=== PATIENT | female | born 1950 | race Caucasian/White ===

== ENCOUNTER → 2016-03-18 | Outpatient (REF) | payer BC, OTHER | LOC: M LAB REF 17:20 | PROVIDERS: ATTEND Internal Medicine | DX: Z20.828 Contact with and (suspected) exposure to other viral communicable diseases (principal) ==

== ENCOUNTER 2016-06-03 17:21 | Emergency (ER) | payer OTHER, BC ==
[~2016-06-03] VITALS: Ht 165.1 cm; Wt 83.9 kg
[2016-06-03] MEDS ORDERED: ACETAMINOPHEN 325 MG/10.15 ML UDC PO ONE (18:15)
[2016-06-03] MEDS ORDERED: VITA250L PO (18:18)
[2016-06-03] MEDS ORDERED: LIPI20TA PO (18:18)
[2016-06-03] MEDS ORDERED: ASPI81TA85 PO (18:18)
[2016-06-03] MEDS ORDERED: MULT1CHW39 PO (18:18)
[2016-06-03] MEDS ORDERED: CHLO25TA GT (18:18)
[2016-06-03] MEDS ORDERED: MEGE40TA18 PO (18:18)
[2016-06-03] MEDS ORDERED: CALC1TAB72 PO (18:18)
[2016-06-03] MEDS ORDERED: ANAS1TAB PO (18:18)
[2016-06-03] MEDS ORDERED: LISI-538 PO (18:18)
[2016-06-03] MEDS ORDERED: VITA200038 PO (18:18)
[2016-06-03] MEDS ORDERED: FOSA70TA PO (18:18)
[2016-06-03] MEDS ORDERED: PANT40TA2 PO (18:18)
--- NOTE | 2016-06-03 19:10 | REP ---
Bilateral knee series: Eight views: History: Trauma. Comparison left knee radiographs are from May 2010. Findings: There is marked diffuse osteopenia. Severe three compartment left and moderate right knee osteoarthritis is seen. The left knee osteoarthritic changes are more pronounced than on the 2011 prior study. There is no evidence of left or right knee fracture. Lateral view shows no evidence of joint effusion on either side. Impression: Three compartment osteoarthritis. Diffuse osteopenia. No fracture visible. Signed by Jason Neal MD 06/03/2016 07:56 P
[2016-06-03 19:22] LABS: BASO % 0.4 % (0.0-1.0); EOS # 0.2 K/mm3 (0.0-0.50); EOS % 1.4 % (0.0-3.0); LARGE UNSTAINED CELL # 0.2 K/mm3 (0.0-0.4); LARGE UNSTAINED CELL % 1.8 % (0.0-4.0); LYMPH # 2.3 K/mm3 (1.5-4.5); LYMPH % 20.9 % (24.0-44.0); MEAN CORPUSCULAR HEMOGLOBIN 29.9 pg (27.0-33.0); MEAN CORPUSCULAR HGB CONC 32.6 g/dl (32.0-36.5); MEAN CORPUSCULAR VOLUME 91.7 fl (80.0-96.0); MONO # 0.6 K/mm3 (0.0-0.8); MONO % 5.7 % (0.0-5.0); NEUTROPHILS # 7.6 K/mm3 (1.8-7.7); NEUTROPHILS % 69.8 % (36.0-66.0); PLATELET COUNT, AUTOMATED 244 k/mm3 (150-450); RED CELL DISTRIBUTION WIDTH 12.8 % (11.5-14.5); WHITE BLOOD COUNT 10.9 K/mm3 (4.0-10.0)
--- NOTE | 2016-06-03 19:37 | REP ---
Head CT without contrast: History: Trauma. CT findings: Digital lateral groundskeeping yardman radiograph is unremarkable. There is hyperostosis frontalis interna noted incidentally. This is of no clinical significance. The bony calvarium is otherwise unremarkable. Visualized paranasal sinuses are clear. There is some vascular calcification in the distal carotid arteries bilaterally. Lateral, third, fourth ventricles are normal in size and position. Ambriz-white differentiation pattern is intact. There is no evidence of infarct, hemorrhage, extra-axial fluid collection, or midline shift. There is some right frontal scalp swelling. No skull fracture. Impression: No evidence of skull fracture or intracranial injury. Right frontal scalp swelling. Some vascular calcification and minimal diffuse atrophy. Signed by Jason Neal MD 06/03/2016 07:58 P
[2016-06-03 19:45] LABS: ALBUMIN 3.5 GM/DL (3.2-5.2); ALBUMIN/GLOBULIN RATIO 1.13 (1.00-1.93); ALKALINE PHOSPHATASE 101 U/L (45-117); ALT/SGPT 20 U/L (12-78); ANION GAP 8 MEQ/L (8-16); AST/SGOT 14 U/L (15-37); BILIRUBIN,DIRECT 0.2 MG/DL (0.0-0.2); BILIRUBIN,TOTAL 0.5 MG/DL (0.2-1.0); BLOOD UREA NITROGEN 15 MG/DL (7-18); CALCIUM LEVEL 8.4 MG/DL (8.8-10.2); CARBON DIOXIDE LEVEL 24 MEQ/L (21-32); CHLORIDE LEVEL 111 MEQ/L (98-107); CREATININE FOR GFR 1.02 MG/DL (0.55-1.02); GLOMERULAR FILTRATION RATE 58.1 (>45); GLUCOSE, FASTING 129 MG/DL (80-110); POTASSIUM SERUM 4.1 MEQ/L (3.5-5.1); SODIUM LEVEL 143 MEQ/L (136-145); TOTAL PROTEIN 6.6 GM/DL (6.4-8.2)
[2016-06-03 19:46] LABS: INR 0.96
--- NOTE | 2016-06-03 19:49 | REP ---
CT study of the cervical spine without contrast: History: Trauma. Technique: Helical scanning is acquired and overlapping 2 mm high resolution axial images were generated and reviewed at bone and soft tissue window settings. Coronal and sagittal multiplanar re-formations images are generated. CT findings: There is no evidence of cervical spine element fracture. No skull base fracture is seen. Cervical vertebral body heights are preserved. Alignment is normal. Facet joints are normally aligned bilaterally at each cervical level on multiplanar re-formations images. There is no evidence of intraspinal or paraspinal hematoma. No extra vertebral abnormality is seen. There are moderate degenerative spondylosis changes with degenerative disc disease most pronounced at the C5-6 and C6-7. Facet osteoarthritis is seen at C6-7 and C7-T1, left more so than right. There is a levoconvex curvature in the cervical spine visible on coronal reformatted images. Impression: Fairly advanced degenerative spondylosis changes. Levoconvex curvature. Otherwise negative CT study of the cervical spine without contrast. No fracture seen. Signed by Jason Neal MD 06/03/2016 07:58 P
[2016-06-03] MEDS ORDERED: CIPR500T89 PO (20:19)
[2016-06-03] MEDS: CIPROFLOXACIN 500 MG TAB PO ONE ×2 (20:30→20:31)
[2016-06-03] MEDS ORDERED: NORCO 5/325MG TABLET (BULK FOR ED) PO ONE (20:30)
[2016-06-03] MEDS ORDERED: BACT800T5 PO (20:48)
[2016-06-03 20:57] VITALS: BP 135/78
[2016-06-03] MEDS ORDERED: BACTRIM 160MG/800MG DS TAB PO ONE (21:00)
[2016-06-04] MEDS ORDERED: ROLLMIS2 XX ×2 (09:49→10:01)
--- NOTE | 2016-06-04 20:24 | ECGEPIP ---
Stationary ECG Study [facility] - ED Test Date: 2016-06-03 Pat Name: LALA GUERRERO Department: Room: - Gender: F Light Bulb Assembler: RANDI : 1950 Requested By: CELESTE Staton Order Number: [id number] Reading MD: Kimberly Caballero Measurements Intervals [place] Rate: 64 P: 81 NC: 164 QRS: 84 QRSD: 72 T: 45 QT: 394 QTc: 407 Interpretive Statements SINUS RHYTHM LOW VOLTAGE LIMB NSTTW ABNORMALITY Electronically Signed On 06-04-2016 20:24:43 EDT by Kimberly Caballero
== END 2016-06-03 21:23 | disposition home or self-care (01) ==
LOC: M ED 18:45
DX: N39.0 Urinary tract infection, site not specified (principal); S00.93XA Contusion of unspecified part of head, initial encounter; S80.02XA Contusion of left knee, initial encounter; S80.01XA Contusion of right knee, initial encounter; W19.XXXA Unspecified fall, initial encounter; Y92.89 Other specified places as the place of occurrence of the external cause; Y93.01 Activity, walking, marching and hiking; Y99.0 Civilian activity done for income or pay; Z88.0 Allergy status to penicillin; Z79.899 Other long term (current) drug therapy; Z79.82 Long term (current) use of aspirin; I10 Essential (primary) hypertension; E78.00 Pure hypercholesterolemia, unspecified; K21.9 Gastro-esophageal reflux disease without esophagitis; E11.9 Type 2 diabetes mellitus without complications; E66.9 Obesity, unspecified

== ENCOUNTER 2016-06-04 07:09 | Emergency (ER) | payer OTHER, BC ==
[~2016-06-04] VITALS: Ht 165.1 cm; Wt 129.3 kg
[~2016-06-04 07:09] MED LIST: ANAS1TAB PO; ASPI81TA85 PO; BACT800T5 PO; CALC1TAB72 PO; CHLO25TA GT; CIPR500T89 PO; FOSA70TA PO; IPRATROPIUM 0.02% SOLN 0.5MG/2.5 ML NEB As Ordered ONE; LIPI20TA PO; LISI-538 PO; MEGE40TA18 PO; MULT1CHW39 PO; PANT40TA2 PO; VITA200038 PO; VITA250L PO
[2016-06-04] MEDS ORDERED: PERCOCET 5MG/325MG TAB PO ONE (08:15)
[2016-06-04] MEDS ORDERED: ROLLMIS2 XX ×2 (09:49→10:01)
[2016-06-04 11:06] VITALS: BP 151/68
== END 2016-06-04 13:01 | disposition home or self-care (01) ==
LOC: EDBD 07:09 → M ED 08:12
DX: S80.01XA Contusion of right knee, initial encounter (principal); S80.02XA Contusion of left knee, initial encounter; W19.XXXA Unspecified fall, initial encounter; Y92.89 Other specified places as the place of occurrence of the external cause; Y93.01 Activity, walking, marching and hiking; Y99.0 Civilian activity done for income or pay; Z88.0 Allergy status to penicillin; Z79.82 Long term (current) use of aspirin; Z79.899 Other long term (current) drug therapy; G47.30 Sleep apnea, unspecified; E11.9 Type 2 diabetes mellitus without complications

== ENCOUNTER → 2016-10-15 | Outpatient (REF) | payer BC, OTHER ==
[~2016-10-15] MED LIST changes: +CIPR-249 PO; -CIPR500T89 PO; -IPRATROPIUM 0.02% SOLN 0.5MG/2.5 ML NEB As Ordered ONE; +ROLLMIS2 XX
[2016-10-15 14:37] LABS: PERCENT SATURATION 20.6 % (13.2-45.0)
== END ==
LOC: M LAB REF 12:40
PROVIDERS: ATTEND Internal Medicine
DX: K91.2 Postsurgical malabsorption, not elsewhere classified (principal)

== ENCOUNTER 2017-01-09 10:44 | Inpatient (IN) | payer BC, OTHER ==
[~2017-01-09] VITALS: Ht 162.6 cm; Wt 141.6 kg
[2017-01-09] MEDS: LR 1,000 ML IV SCH (00:50)
[~2017-01-09 10:44] MED LIST changes: -CHLO25TA GT; +CHLO25TA PO
[2017-01-09] MEDS: NS 1,000 ML IV SCH (10:56)
[2017-01-09] MEDS ORDERED: MORPHINE 4 MG/ML 1ML SYRINGE IV PRN (11:00)
[2017-01-09] MEDS ORDERED: ONDANSETRON 4MG/2ML VIAL (J2405) IV ONE (11:00)
[2017-01-09 11:19] LABS: BASO % 0.2 % (0.0-1.0); EOS # 0.1 10^3/uL (0.0-0.50); EOS % 0.4 % (0.0-3.0); IMMATURE GRANULOCYTE % 0.5 % (0-0); LYMPH # 1.4 10^3/uL (1.5-4.5); LYMPH % 7.4 % (24.0-44.0); MEAN CORPUSCULAR HEMOGLOBIN 30.8 pg (27.0-33.0); MEAN CORPUSCULAR HGB CONC 32.9 g/dl (32.0-36.5); MEAN CORPUSCULAR VOLUME 93.6 fl (80.0-96.0); MONO # 0.8 10^3/uL (0.0-0.8); MONO % 4.5 % (0.0-5.0); NEUTROPHILS # 16.1 10^3/uL (1.8-7.7); PLATELET COUNT, AUTOMATED 242 10^3/uL (150-450); RED CELL DISTRIBUTION WIDTH 12.6 % (11.5-14.5); WHITE BLOOD COUNT 18.5 10^3/uL (4.0-10.0)
[2017-01-09 11:42] LABS: ALBUMIN 3.3 GM/DL (3.2-5.2); ALBUMIN/GLOBULIN RATIO 0.87 (1.00-1.93); ALKALINE PHOSPHATASE 88 U/L (45-117); ALT/SGPT 25 U/L (12-78); ANION GAP 10 MEQ/L (8-16); AST/SGOT 12 U/L (7-37); BILIRUBIN,DIRECT 0.2 MG/DL (0.0-0.2); BILIRUBIN,TOTAL 0.5 MG/DL (0.2-1.0); BLOOD UREA NITROGEN 19 MG/DL (7-18); CALCIUM LEVEL 8.2 MG/DL (8.8-10.2); CARBON DIOXIDE LEVEL 19 MEQ/L (21-32); CHLORIDE LEVEL 113 MEQ/L (98-107); CREATININE FOR GFR 1.12 MG/DL (0.55-1.02); GLOMERULAR FILTRATION RATE 52.1 (>45); GLUCOSE, FASTING 184 MG/DL (80-110); POTASSIUM SERUM 3.8 MEQ/L (3.5-5.1); SODIUM LEVEL 142 MEQ/L (136-145); TOTAL PROTEIN 7.1 GM/DL (6.4-8.2)
--- NOTE | 2017-01-09 12:38 | REP ---
Clinical: Acute abdominal pain. Technique: Upright view of the chest with supine and upright views of the abdomen and pelvis. Findings: Frontal upright view of the chest demonstrates no acute cardiopulmonary process or free air below the diaphragm to suspect pneumoperitoneum. Supine and upright views of the abdomen and pelvis demonstrate nonspecific bowel gas pattern without obstruction or perforation. No organomegaly. IVC filter and evidence of prior cholecystectomy noted. Skeletal structures demonstrate age-related degenerative changes Impression: Nonspecific bowel gas pattern. Signed by Williams Gonsales MD 01/09/2017 12:29 P
[2017-01-09] MEDS ORDERED: GASTROGRAFIN SOLUTION 30ML PO ONE (13:50)
[2017-01-09] MEDS ORDERED: ISOVUE-370 76% 100ML VIAL (Q9967) As Ordered ONE (13:57)
[2017-01-09] MEDS ORDERED: GASTROGRAFIN SOLUTION 30ML (Q9963) PO ONE (14:20)
[2017-01-09] MEDS ORDERED: CIPROFLOXACIN 400 MG in APPROPRIATE DILUENT 1 EA IV ONE (15:45)
[2017-01-09] MEDS ORDERED: metroNIDAZOLE 500 MG in APPROPRIATE DILUENT 1 EA IV ONE (15:45)
--- NOTE | 2017-01-09 15:45 | REP ---
Clinical: Acute upper abdominal pain with prior gastric bypass. Technique: Axial contrast enhanced images from the lung bases to the pubic symphysis using oral (per protocol) and 100 ml Isovue 370 intravenous contrast material with coronal and sagittal re-formations. Comparison: 07/20/2015. Findings: Focal free air is identified in the left epigastrium adjacent to the lesser curvature of the stomach at the site of gastric bypass and is most consistent with focal perforation (images 17 - 31). Oral contrast is identified with in the jejunum and ileum without evidence for extravasation. There is no evidence for bowel obstruction or free fluid. Liver, spleen, pancreas, bilateral adrenal glands and kidneys are relatively normal. Bilateral nonobstructing renal calculi measuring up to 2 mm noted without hydronephrosis or perinephric stranding. The patient is status post cholecystectomy. IVC filter identified in the infrarenal vena cava. Pelvis demonstrates collapsed bladder and age-appropriate uterus/adnexa. No pelvic fluid. No significant adenopathy; pelvic sidewall lymph nodes are unchanged compared to 07/20/2015. Abdominal aorta without aneurysm or dissection. Skeletal structures demonstrate degenerative changes without focal osseous abnormality. Impression: Contained free air along the lesser curvature of the stomach in relation to gastric bypass is most consistent with anastomotic breakdown and or perforation. There is no evidence for extravasated contrast material, free fluid/abscess or bowel obstruction. Signed by Williams Gonsales MD 01/09/2017 03:35 P
[2017-01-09] MEDS ORDERED: CHLO25TA PO (16:21)
[2017-01-09] MEDS ORDERED: INSUH10VL SC (16:21)
[2017-01-09] MEDS ORDERED: ACET1LIQ PO (16:21)
[2017-01-09] MEDS ORDERED: B-12500T2 PO (16:21)
[2017-01-09] MEDS ORDERED: LISI40TAB PO (16:21)
[2017-01-09] MEDS ORDERED: FLON1SPR (16:21)
[2017-01-09] MEDS ORDERED: CLOT1CRE71 TOP (16:21)
[2017-01-09] MEDS ORDERED: SALI0.6523 (16:21)
[2017-01-09] MEDS ORDERED: BARI1CHW PO (16:21)
[2017-01-09] MEDS ORDERED: METF-414 PO (16:21)
[2017-01-09] MEDS ORDERED: ONDANSETRON 4MG/2ML VIAL (J2405) IV PRN (19:15)
[2017-01-09] MEDS ORDERED: MORPHINE 2 MG/ML 1ML SYRINGE IV PRN (19:15)
[2017-01-09] MEDS ORDERED: fentaNYL 100 MCG/2 ML INJECTION (J3010) As Ordered ONE (20:02)
[2017-01-09] MEDS ORDERED: MIDAZOLAM INJ 2 MG/2 ML VIAL (J2250) As Ordered ONE ×2 (20:02→20:58)
[2017-01-09] MEDS ORDERED: LIDOCAINE 2% INJ 100 MG/5 ML SDV (FOR ANES.) As Ordered ONE (20:58)
[2017-01-09] MEDS ORDERED: PROPOFOL 200 MG/20 ML VIAL As Ordered ONE (20:58)
[2017-01-09] MEDS ORDERED: fentaNYL 250 MCG/5 ML INJECTION (J3010) As Ordered ONE (20:58)
[2017-01-09] MEDS ORDERED: ROCURONIUM BROMIDE 50 MG/5 ML VIAL As Ordered ONE ×2 (20:58→21:34)
[2017-01-09] MEDS ORDERED: MIDAZOLAM INJ 2 MG/2 ML VIAL (J2250) IV PRN (21:00)
[2017-01-09] MEDS ORDERED: fentaNYL 100 MCG/2 ML INJECTION (J3010) IV PRN (21:00)
[2017-01-09] MEDS ORDERED: ePHEDrine SULFATE 25 MG/5 ML(5MG/ML) SYRINGE As Ordered ONE (21:17)
[2017-01-09] MEDS ORDERED: BUPIVACAINE HCL 0.25% 30 ML VIAL As Ordered ONE ×2 (21:33→21:56)
[2017-01-09] MEDS ORDERED: DESFLURANE 240 ML INHALANT As Ordered ONE (21:54)
[2017-01-09] MEDS ORDERED: GLYCOPYRROLATE INJ 0.2 MG/ML 2 ML VIAL As Ordered ONE (22:16)
[2017-01-09] MEDS ORDERED: ONDANSETRON 4MG/2ML VIAL (J2405) As Ordered ONE (22:16)
[2017-01-09] MEDS ORDERED: ESMOLOL INJ 100MG/10ML VIAL As Ordered ONE (22:21)
[2017-01-10] VITALS (9 sets, daily range): BP systolic 134–184; BP diastolic 77–98
[2017-01-10] MEDS ORDERED: FENTANYL 2MCG/ML BUPIVACAINE 0.0625% NACL 250ML IV BAG As Ordered ONE (00:02)
[2017-01-10] MEDS ORDERED: ONDANSETRON 4MG/2ML VIAL (J2405) IV PRN ×2 (00:15→07:45)
[2017-01-10] MEDS ORDERED: METOCLOPRAMIDE INJ 10MG/2ML VIAL (J2765) IV PRN (00:15)
[2017-01-10] MEDS ORDERED: diphenhydrAMINE INJ 50MG/ML VIAL (J1200) IV PRN (00:15)
[2017-01-10] MEDS ORDERED: EPIDURAL/PCA KEYS XX PRN (00:15)
[2017-01-10] MEDS ORDERED: WALLBOXKEY XX PRN (00:15)
[2017-01-10] MEDS ORDERED: NALOXONE INJ 0.4 MG/1 ML VIAL (J2310) IV PRN (00:15)
[2017-01-10] MEDS ORDERED: ONDANSETRON 4MG/2ML VIAL (J2405) As Ordered ONE (00:26)
[2017-01-10] MEDS: FENTANYL/BUPIVACAINE/NACL BAG 250 ML EPIDURAL SCH (01:21)
[2017-01-10] MEDS: PANTOPRAZOLE 40MG INJ (PROTONIX) (C9113) IV SCH ×3 (01:47→20:09)
[2017-01-10] MEDS: HumaLOG INSULIN (NovoLOG) PER UNIT SC SCH ×4 (02:00→18:00)
[2017-01-10] MEDS: NS 1,000 ML IV SCH (02:04)
[2017-01-10] MEDS: metroNIDAZOLE 500 MG in APPROPRIATE DILUENT 1 EA IV SCH ×3 (02:10→18:00)
[2017-01-10] MEDS: LR 1,000 ML IV SCH ×3 (03:07→20:10)
[2017-01-10] MEDS: CIPROFLOXACIN 400 MG in APPROPRIATE DILUENT 1 EA IV SCH ×2 (03:38→15:40)
--- NOTE | 2017-01-10 06:16 | RO ---
DATE OF PROCEDURE: 01/09/2017 PREOPERATIVE DIAGNOSIS: Perforated viscus. POSTOPERATIVE DIAGNOSIS: Perforated ulcer at gastrojejunal anastomosis status post Meaghan-en-Y gastric bypass. PROCEDURE PERFORMED: Laparoscopic Marco patch closure of a perforated gastrojejunal ulcer. SURGEON: Dr. Toni Bingham ANESTHESIA: General. INDICATIONS FOR THE PROCEDURE: The patient is a 66-year-old woman who presented to the emergency department with a history of severe epigastric discomfort which had begun at approximately 5 o'clock in the morning of the . She arrived in the emergency department at approximately 10:44 for evaluation. She has a history of a Meaghan-en-Y gastric bypass approximately 4 years ago and her evaluation revealed an elevated white blood cell count with a CT showing free air high in the epigastrium in the area of her gastrojejunal anastomosis. She is now for surgery for an apparent perforated viscus, probable perforated ulcer. The patient had an epidural catheter placed for postoperative pain management. OPERATIVE PROCEDURE: She was taken to the operating room and placed under general endotracheal anesthesia. The patient was moved into a low lithotomy position with the lower extremities supported in padded leg holders. A Andersen catheter was inserted. The patient's abdomen was prepped and draped in a sterile fashion. 0.25% Marcaine was infiltrated at each of the trocar sites prior to insertion. An initial entry into the abdomen was achieved in the left upper quadrant. A short incision was made and a Veress needle was inserted and after a positive hanging drop test the abdomen was inflated with carbon dioxide gas. A 30 degrees 5 mm scope was inserted through a 5 mm trocar and this was advanced through the abdominal wall without difficulty. Insufflation continued and the laparoscopic was placed for inspection. There was abundant intra-abdominal fat. The colon contained a large amount of air. The liver appeared normal. There was a small amount of free fluid with some exudate high in the epigastrium. The patient was tilted to a significant reverse Trendelenburg position. At this point, additional trocars were placed. A second 5 mm trocar was placed in the left upper quadrant slightly higher and more lateral. A third trocar was placed in the right upper quadrant in the epigastrium slightly to the right of the midline and a fourth trocar was placed in the right upper quadrant more laterally below the costal margin. A flexible liver retractor was inserted through the far right trocar and used to elevate the edge of the left lobe of the liver. There was significant exudate noted anterior to the efferent limb of her gastrojejunal anastomosis. Graspers were inserted and this area was exposed and irrigated. There was very readily identified a perforated ulcer which was perhaps 6-7 mm in diameter. This was draining a small amount of clear fluid consistent with saliva. The upper abdomen was irrigated with saline using the suction merchandise buyer. The spleen was readily identified and left undisturbed. There were a few adhesions of the omentum along the edge of the efferent limb and these were divided to gain better exposure. Inspection confirmed the ulcer. This appeared to lie right at the level of the anastomosis of the gastric remnant to the jejunum. There did appear to be some significant induration, particularly of the more superior aspect of the ulcer. I elected to proceed with a patch closure rather than trying to suture the defect closed. Therefore, endoscopic suturing instruments were used to perform a Marco patch closure of the defect. There was a good frond of omentum along the medial aspect of the efferent limb that looked certainly adequate for the patch. The first suture was placed directly across the opening of the ulcer. One additional suture was placed on either side of this. The frond of omentum was then brought across the area of the ulcer and the right most suture was tied down to hold the fat in place. The other two sutures were then also tied down, fixing the fold of fibrofatty tissue over the ulcer. A fifth trocar was placed in the left upper quadrant to facilitate placement of a drain. I would note that the lateral left upper quadrant trocar had been converted from a 5 to a 10 to facilitate the suturing. Inspection showed that the middle suture was slightly loose and a single hemoclip was placed to take a tuck in the suture and tighten this slightly. A 19-Serbian Aidan drain was inserted through the 10 mm trocar and directed out through the fifth trocar site high in the left upper quadrant. The drain was then placed across the area of the patch closure just superior to this and then down into the subhepatic space to the right. The right upper quadrant was irrigated and inspected and there did not appear to be any bleeding and there was no evidence of any significant residual contamination. The patient was returned to a flat position. An Endo close device was used to place two 0 Vicryl sutures in the 10 mm port site in the left upper quadrant. The three remaining trocars were used to vent the gas from the abdomen and these were then removed. The drain was sutured to the skin with a #2-0 silk and the site was then dressed with a CHG OpSite. The four remaining trocar sites were closed with buried sutures of #5-0 Vicryl and Steri-Strips. Light dressings were applied. The patient tolerated the procedure well without apparent complication. I elected to remove her Andersen catheter. She was awakened in the operating room, extubated and moved to the recovery room in stable condition. GLORIA
[2017-01-10] MEDS ORDERED: fentaNYL 100 MCG/2 ML INJECTION (J3010) IV PRN (07:45)
[2017-01-10] MEDS ORDERED: MORPHINE 10 MG/ML 1ML VIAL IV PRN (07:45)
[2017-01-10] MEDS ORDERED: LR 1,000 ML IV SCH (07:45)
[2017-01-10 08:01] LABS: BASO % 0.2 % (0.0-1.0); EOS % 0.1 % (0.0-3.0); IMMATURE GRANULOCYTE % 0.4 % (0-0); LYMPH # 1.4 10^3/uL (1.5-4.5); LYMPH % 9.2 % (24.0-44.0); MEAN CORPUSCULAR HEMOGLOBIN 30.8 pg (27.0-33.0); MEAN CORPUSCULAR HGB CONC 33.4 g/dl (32.0-36.5); MEAN CORPUSCULAR VOLUME 92.1 fl (80.0-96.0); MONO # 0.9 10^3/uL (0.0-0.8); MONO % 5.9 % (0.0-5.0); NEUTROPHILS # 12.9 10^3/uL (1.8-7.7); NEUTROPHILS % 84.2 % (36.0-66.0); PLATELET COUNT, AUTOMATED 229 10^3/uL (150-450); RED CELL DISTRIBUTION WIDTH 12.7 % (11.5-14.5); WHITE BLOOD COUNT 15.3 10^3/uL (4.0-10.0)
[2017-01-10 08:19] LABS: ALBUMIN 2.5 GM/DL (3.2-5.2); ALBUMIN/GLOBULIN RATIO 0.74 (1.00-1.93); BILIRUBIN,TOTAL 0.5 MG/DL (0.2-1.0); CALCIUM LEVEL 8.2 MG/DL (8.8-10.2); CREATININE FOR GFR 1.19 MG/DL (0.55-1.02); GLOMERULAR FILTRATION RATE 48.6 (>45); POTASSIUM SERUM 4.3 MEQ/L (3.5-5.1); TOTAL PROTEIN 5.9 GM/DL (6.4-8.2)
[2017-01-10] MEDS ORDERED: PANTOPRAZOLE 40MG INJ (PROTONIX) (C9113) IV SCH (09:00)
--- NOTE | 2017-01-10 09:07 | ECGEPIP ---
Stationary ECG Study [facility] - ED Test Date: 2017-01-09 Pat Name: LALA GUERRERO Department: Room: - Gender: F Talent Analyst: jonel : 1950 Requested By: Jose Arnold Order Number: [id number] Reading MD: Jose Russo Measurements Intervals [place] Rate: 69 P: 79 UT: 169 QRS: 85 QRSD: 68 T: 42 QT: 389 QTc: 418 Interpretive Statements SINUS RHYTHM LOW QRS VOLTAGE IN PRECORDIAL LEADS POOR R WAVE PROGRESSION SIMILAR TO 06/03/16 Electronically Signed On 01-10-2017 9:07:07 EST by Jose Russo
--- NOTE | 2017-01-10 19:55 | IPN ---
DATE: 01/10/2017 The patient is now just under one day postop from her laparoscopic Marco patch closure of a perforated ulcer of her gastrojejunal anastomosis. She has been doing very well postop. Vital signs: She is afebrile with a pulse in the 60s to 80s and a good blood pressure. Intake and output shows 3300 in today with 1475 out. Her urine output now includes over a liter. Her left upper quadrant drain has a 120 mL recorded. PHYSICAL EXAMINATION: Patient is a morbidly obese woman sitting on the edge of the bed, looking quite comfortable. Sclerae are anicteric. The skin is warm and dry. The abdomen is quite obese. She has bowel sounds auscultable. The abdomen is not unduly tender. She has some pinkish fluid in the left upper quadrant drain. Repeat laboratory studies this morning showed a white count of 15,000 with hemoglobin 12, hematocrit 36 and a platelet count of 229,000. Differential count showed 84% neutrophils, 9 lymphocytes and 6 monocytes. Chemistry profile showed good electrolytes with the only abnormality being a chloride of 111. Her BUN is 14 with a creatinine of 1.19 and her glucose was 187. She did have a slightly elevated lactate this morning at 3.4. IMPRESSION: 1. She Is doing well one day postoperatively from patch repair of her perforated ulcer. PLAN: The patient will be allowed to take a few sips of clear liquids. Her drain in the left upper quadrant will be continued. We will continue her ciprofloxacin and Flagyl for antibiotic coverage. I will continue her Ringer's lactate at this point. She is encouraged to be up ambulating. If she is still doing well tomorrow, I will consider advancing her diet somewhat.
[2017-01-11] MEDS: HumaLOG INSULIN (NovoLOG) PER UNIT SC SCH ×4 (00:34→17:16)
[2017-01-11] MEDS: metroNIDAZOLE 500 MG in APPROPRIATE DILUENT 1 EA IV SCH ×3 (02:43→17:16)
[2017-01-11] MEDS: CIPROFLOXACIN 400 MG in APPROPRIATE DILUENT 1 EA IV SCH ×2 (02:44→14:37)
[2017-01-11] MEDS: LR 1,000 ML IV SCH ×2 (02:46→10:03)
[2017-01-11] MEDS: FENTANYL/BUPIVACAINE/NACL BAG 250 ML EPIDURAL SCH (04:09)
[2017-01-11 06:00] VITALS: BP 150/86
[2017-01-11 07:47] LABS: BASO % 0.3 % (0.0-1.0); EOS # 0.2 10^3/uL (0.0-0.50); EOS % 2.2 % (0.0-3.0); IMMATURE GRANULOCYTE % 0.6 % (0-0); LYMPH % 21.8 % (24.0-44.0); MEAN CORPUSCULAR HEMOGLOBIN 30.9 pg (27.0-33.0); MEAN CORPUSCULAR HGB CONC 33.4 g/dl (32.0-36.5); MEAN CORPUSCULAR VOLUME 92.5 fl (80.0-96.0); MONO # 0.7 10^3/uL (0.0-0.8); NEUTROPHILS % 67.1 % (36.0-66.0); PLATELET COUNT, AUTOMATED 208 10^3/uL (150-450); RED CELL DISTRIBUTION WIDTH 12.8 % (11.5-14.5); WHITE BLOOD COUNT 8.9 10^3/uL (4.0-10.0)
[2017-01-11] MEDS: PANTOPRAZOLE 40MG INJ (PROTONIX) (C9113) IV SCH ×2 (10:02→21:47)
[2017-01-11 14:00] VITALS: BP 176/74
[2017-01-11] MEDS: CHLORTHALIDONE 12.5MG PER 1/2 TABLET PO SCH (14:36)
[2017-01-11] MEDS: ENOXAPARIN 40 MG/0.4 ML SYRINGE (J1650) SC SCH (14:36)
--- NOTE | 2017-01-11 14:44 | IPN ---
DATE: 01/11/2017 The patient is now postoperative day #2 from a laparoscopic patch closure of a perforated gastrojejunal ulcer. She has been doing well and is tolerating some sips of clear liquids. Her epidural catheter was discontinued this morning. Vital signs show that she is afebrile with stable vitals and she is not tachycardiac. Intake and output shows 3800 in yesterday with 1800 out. Her drain had a total of 120 yesterday and 60 so far today. PHYSICAL EXAMINATION: The patient he is sitting up in a chair at the bedside. She is alert and pleasant and seems comfortable. Heart and lung exam is unremarkable. Her drain is putting out a minimal amount of watery fluid. LABORATORY FINDINGS CBC shows white count 8.9 with a differential showing 67% neutrophils and 22% lymphocytes. Hemoglobin is 11 with a hematocrit of 33 and platelet count is 208,000. Chemistry profile was not repeated today. IMPRESSION: The patient is doing very well day two from her perforated ulcer repair. PLAN: I will advance her diet to unlimited full liquids today. If she tolerates this well, we will saline lock her IV. I will start her on Lovenox for deep vein thrombosis (DVT) prophylaxis. Her chlorthalidone and her lisinopril will be restarted today. She is encouraged to be up ambulatory with assist as needed. I would think she might well be ready for discharge tomorrow, but we will see how she is doing at that time. GLORIA
[2017-01-11] MEDS: SUCRALFATE SUSP 1GM/10ML UD PO SCH ×2 (17:15→21:47)
[2017-01-11] MEDS ORDERED: LISINOPRIL 40 MG TAB PO SCH (21:00)
[2017-01-11] MEDS ORDERED: HumaLOG INSULIN (NovoLOG) PER UNIT SC SCH (21:00)
[2017-01-11 22:00] VITALS: BP 148/72
[2017-01-12] MEDS: metroNIDAZOLE 500 MG in APPROPRIATE DILUENT 1 EA IV SCH ×2 (01:02→09:32)
[2017-01-12] MEDS: CIPROFLOXACIN 400 MG in APPROPRIATE DILUENT 1 EA IV SCH ×2 (02:49→15:46)
[2017-01-12] MEDS: LR 1,000 ML IV SCH (05:28)
[2017-01-12 06:00] VITALS: BP 152/73
[2017-01-12] MEDS: CHLORTHALIDONE 12.5MG PER 1/2 TABLET PO SCH (09:32)
[2017-01-12] MEDS: ENOXAPARIN 40 MG/0.4 ML SYRINGE (J1650) SC SCH (09:33)
[2017-01-12] MEDS: SUCRALFATE SUSP 1GM/10ML UD PO SCH ×2 (09:33→13:01)
[2017-01-12] MEDS: PANTOPRAZOLE 40MG INJ (PROTONIX) (C9113) IV SCH (09:33)
[2017-01-12] MEDS: HumaLOG INSULIN (NovoLOG) PER UNIT SC SCH ×2 (09:39→13:01)
[2017-01-12] MEDS ORDERED: METR1TAB66 PO (12:01)
[2017-01-12] MEDS ORDERED: CIPR500T3 PO (12:01)
[2017-01-12] MEDS ORDERED: SUCR10SS PO (12:01)
[2017-01-12 14:00] VITALS: BP 150/86
--- NOTE | 2017-01-13 18:23 | IPN ---
DATE: 01/12/2017 PATIENT HISTORY: The patient is now postoperative day 3 from a laparoscopic patch repair of a perforated gastrojejunal anastomotic ulcer. She has been doing well and has remained afebrile. She remains on ciprofloxacin and Flagyl. Her diet was advanced on the to full liquids. She has tolerated these well. Her only complaint today is that she feels that she has a little bit of edema in her feet and her hands. She denies any shortness of breath. VITAL SIGNS: Shows that she is afebrile with a pulse approximately 70 and an excellent blood pressure. Her intake and output on the showed 480 in and 2600 out. Her drain on the had 90 mL and today it has drained only 40. PHYSICAL EXAMINATION: The patient is lying quietly in the bed. She is alert and oriented. She appears comfortable. The abdominal exam shows that she has active bowel sounds. Her four closed trocar site incisions all looked clean and dry with Steri-Strips in place. The abdomen is without undue tenderness. The drain site in the left upper quadrant is clean and there is only some very watery nearly clear fluid in her drain bulb now. The patient has no new laboratory studies. IMPRESSION: Doing very well now, three days postoperative from her repair of a perforated ulcer at her gastrojejunal anastomosis. PLAN: The patient appears to be doing well enough for discharge home. I discussed with her that since she developed this ulcer while already taking Protonix, that I would like to send her home with both the Protonix and some Carafate to try to prevent reperforation and promote healing. I have also suggested that we send her home on another two days worth of Cipro and Flagyl. She will not be provided any narcotic analgesics as she tends to get quite ill with them and is used to taking Tylenol for discomfort. I will remove her drain and this was accomplished at the bedside without difficulty. A nonstick dressing was applied. She was counseled to apply a small dab of topical antibiotic ointment and a nonstick dressing daily until her wound healed. I have asked her to followup with me in about two weeks. She should remain on a liquid diet for the next 48 hours or so and then can gradually advance her diet as she tolerated. She has an appointment scheduled as a routine visit with her primary physician, Dr. Olson next week and she should keep this. I also advised that it would be prudent to check in with her bariatric surgeon at some point as well. She will otherwise resume her preadmission medications. She will contact the office if there are any problems.
== END 2017-01-12 17:00 | disposition home or self-care (01) | DRG 222 ==
LOC: M ED 10:44 → EDBD 10:44 → M ED INP 19:07 → M MS5PR 01-10 00:45
PROVIDERS: ADMIT Surgery; ATTEND Surgery
PROC: 0DQ64ZZ Repair Stomach, Percutaneous Endoscopic Approach (ICD-10-PCS; principal; 2017-01-09 18:00)
DX: K28.5 Chronic or unspecified gastrojejunal ulcer with perforation (principal); Z68.43 Body mass index [BMI] 50.0-59.9, adult; E66.01 Morbid (severe) obesity due to excess calories; Z98.84 Bariatric surgery status

== ENCOUNTER → 2017-05-11 | Outpatient (REF) | payer BC, OTHER ==
[2017-05-11 14:20] LABS: FERRITIN 36 NG/ML (8-252); IRON (FE) 53 UG/DL (50-170); PERCENT SATURATION 15.6 % (13.2-45.0); TOTAL IRON BINDING CAPACITY 340 UG/DL (250-450)
[2017-05-11 14:21] LABS: PTH INTACT 167.3 PG/ML (18.5-88.0)
[2017-05-11 14:22] LABS: VITAMIN B12 LEVEL 607 PG/ML (247-911)
[2017-05-12 08:06] LABS: LDL DIRECT 86 mg/dL (0-99)
[2017-05-14 08:16] LABS: C-TELOPEPTIDE 292 pg/mL (.)
== END ==
LOC: M LAB REF 12:59
DX: K91.2 Postsurgical malabsorption, not elsewhere classified (principal)
CPT/HCPCS: 83550

== ENCOUNTER → 2017-07-14 | Outpatient (REF) | payer OTHER ==
[2017-07-14 15:26] LABS: FERRITIN 47 NG/ML (8-252); IRON (FE) 84 UG/DL (50-170); PERCENT SATURATION 28.3 % (13.2-45.0); TOTAL IRON BINDING CAPACITY 297 UG/DL (250-450)
[2017-07-14 15:35] LABS: TOTAL 25(OH) VITAMIN D 38.8 NG/ML (30.0-100.0)
[2017-07-14 15:36] LABS: VITAMIN B12 LEVEL 560 PG/ML (247-911)
[2017-07-18 10:26] LABS: VITAMIN B1 LEVEL WHOLE BLOOD 135.2 nmol/L (66.5-200.0)
== END ==
LOC: M LAB REF 14:20
DX: K91.2 Postsurgical malabsorption, not elsewhere classified (principal)

== ENCOUNTER → 2017-09-02 | Outpatient (REF) | payer OTHER ==
[2017-09-02 14:23] LABS: PTH INTACT 117.7 PG/ML (18.5-88.0)
[2017-09-05 00:07] LABS: C-TELOPEPTIDE 199 pg/mL (.); LDL DIRECT 48 mg/dL (0-99)
[2017-09-05 00:07] LABS: C-PEPTIDE 5.6 ng/mL (1.1-4.4)
== END ==
LOC: M LAB REF 13:21
DX: E78.2 Mixed hyperlipidemia (principal); E11.65 Type 2 diabetes mellitus with hyperglycemia; M81.8 Other osteoporosis without current pathological fracture

== ENCOUNTER → 2017-12-12 | Outpatient (REF) | payer OTHER ==
[2017-12-12 13:02] LABS: IRON (FE) 49 UG/DL (50-170); PERCENT SATURATION 15.6 % (13.2-45.0); TOTAL 25(OH) VITAMIN D 39.9 NG/ML (30.0-100.0); TOTAL IRON BINDING CAPACITY 314 UG/DL (250-450)
== END ==
LOC: M LAB REF 11:55
DX: K91.2 Postsurgical malabsorption, not elsewhere classified (principal)

== ENCOUNTER → 2018-03-14 | Outpatient (REF) | payer OTHER ==
[~2018-03-14] MED LIST changes: +ACET1LIQ PO; -ANAS1TAB PO; +ANAS1TAB2 PO; +B-12500T2 PO; +BARI1CHW PO; +CIPR500T3 PO; +CLOT1CRE71 TOP; +FLON1SPR; +INSUH10VL SC; +LISI40TA PO; +METF-414 PO; +METR-201 PO; -PANT40TA2 PO; +PANT40TA3 PO; +SALI0.6528; +SUCR10SS PO
[2018-03-14 13:09] LABS: PERCENT SATURATION 11.8 % (13.2-45.0)
[2018-03-14 13:16] LABS: TOTAL 25(OH) VITAMIN D 43.6 NG/ML (30.0-100.0)
== END ==
LOC: M LAB REF 12:31
PROVIDERS: ATTEND Internal Medicine
DX: K91.2 Postsurgical malabsorption, not elsewhere classified (principal)

== ENCOUNTER → 2018-10-10 | Outpatient (CLI) | payer BC, OTHER ==
[~2018-10-10] MED LIST changes: +BARIATRIC VITAMIN PO; +HM S0.65; +MEGE40TA PO; +METF-839 PO; -METR-201 PO; +METR-265 PO; -MULT1CHW39 PO; +MULT200T7 PO; +SM CTAB PO; +TRUL0.5I SC; +VITA500T40 PO
--- NOTE | 2018-10-10 20:14 | REP ---
LEFT FOOT COMPLETE: 10/10/2018. Clinical history: Pain, no trauma. Findings: Bones are demineralized. I see no visible or displaced fracture of the phalanges or metatarsals. Degenerative spurring of the distal head of the first metatarsal medially. First MTP joint shows some mild degenerative change. The other MTP joints grossly intact. IP joints show some mild degenerative change at most levels. There is diffuse soft tissue swelling about the foot. Plantar calcaneal spur noted. Some early calcification forming in the distal Achilles tendon near its insertion. Some spurs along the dorsal aspect of the navicular bone. No definite acute fracture there. The other tarsal bones grossly intact. Talonavicular and calcaneocuboid joints normal. Subtalar joints intact. Impression: 1. Diffuse soft tissue swelling about the lower leg hind foot and ankle as well as the mid and distal forefoot. No visible or displaced fracture. 2. Some degenerative changes and a plantar calcaneal spur noted particularly the dorsal midfoot and forefoot. Electronically Signed by Edis Flores MD 10/11/2018 07:56 A
== END ==
LOC: M RAD 18:48
PROVIDERS: ATTEND Physician Assistant
DX: M77.32 Calcaneal spur, left foot (principal)

== ENCOUNTER → 2018-12-22 | Outpatient (REF) | payer OTHER ==
[2018-12-22 14:06] LABS: PERCENT SATURATION 25.7 % (13.2-45.0)
== END ==
LOC: M LAB REF 12:16
PROVIDERS: ATTEND Internal Medicine
DX: K91.2 Postsurgical malabsorption, not elsewhere classified (principal)

== ENCOUNTER → 2019-07-17 | Outpatient (REF) | payer OTHER ==
[~2019-07-17] MED LIST changes: +ACET160L16 PO; -ACET1LIQ PO; -SUCR10SS PO; +SUCR1ORA2 PO
[2019-07-17 19:34] LABS: COMPLEMENT C3 132 MG/DL (90-180); COMPLEMENT C4 23 MG/DL (10-40)
[2019-07-20 16:27] LABS: ANCA-ATYPICAL <1:20 titer (Neg:<1:20); ANTI DS-DNA AB Negative (Negative); ANTI-GLOMERULAR BASEMENT MEMB 4 units (0-20); CYTOPLASMIC NEUTROP AB ANCA-C <1:20 titer (Neg:<1:20); PERINUCLEAR AB ANCA-P <1:20 titer (Neg:<1:20)
== END ==
LOC: M LAB REF 16:47
PROVIDERS: ATTEND Internal Medicine Nephrology
DX: R80.9 Proteinuria, unspecified (principal)

== ENCOUNTER → 2019-08-23 | Outpatient (CLI) | payer BC ==
[~2019-08-23] MED LIST changes: -ASPI81TA85 PO; +ASPI81TA86 PO; +CALC1CAP31 PO; +FURO20TA2 PO; +INSUDET SC; +K-TA10TA2 PO; +PANT40TA29 PO; -PANT40TA3 PO; +SPIR-10 PO
--- NOTE | 2019-08-23 15:19 | REP ---
RENAL ULTRASOUND: Real-time sonographic evaluation of the kidneys performed. The kidneys are normal in size and echotexture, right kidney measuring 10.7 x 5.7 x 4.6 cm and the left kidney 11.4 x 5.1 x 4.7 cm. There is no hydronephrosis or renal mass seen bilaterally. On duplex Doppler evaluation resistive index right kidney is 0.58 and left kidney 0.50. IMPRESSION: No hydronephrosis or renal mass.
== END ==
LOC: M WHC 11:23
PROVIDERS: ATTEND Internal Medicine Nephrology
DX: N18.3 Chronic kidney disease, stage 3 (moderate) (principal)

== ENCOUNTER → 2019-10-14 | Outpatient (CLI) | payer BC | LOC: M LABSMTC 08:08 | PROVIDERS: ATTEND Anesthesiology | DX: Z01.812 Encounter for preprocedural laboratory examination (principal); Z20.828 Contact with and (suspected) exposure to other viral communicable diseases | CPT/HCPCS: C9803; U0003 ==

== ENCOUNTER 2019-10-18 14:17 | Day surgery (SDC) | payer BC, OTHER ==
[~2019-10-18] VITALS: Ht 160 cm; Wt 138.7 kg
[~2019-10-18 14:17] MED LIST changes: -CALC1CAP31 PO; -FURO20TA2 PO; -INSUDET SC; -K-TA10TA2 PO; +NS 1,000 ML IV ONE; -SPIR-10 PO
[2019-10-18] MEDS ORDERED: K-TA10TA2 PO (15:19)
[2019-10-18] MEDS ORDERED: FURO20TA2 PO (15:19)
[2019-10-18] MEDS ORDERED: SPIR-10 PO (15:19)
[2019-10-18] MEDS ORDERED: CALC1CAP31 PO (15:19)
[2019-10-18] MEDS ORDERED: INSUDET SC (15:19)
[2019-10-18] MEDS ORDERED: GLUCAGON INJ 1MG VIAL As Ordered ONE (16:55)
[2019-10-18] MEDS ORDERED: LIDOCAINE 2% 100MG/5ML SDV (FOR ANES.) As Ordered ONE (16:55)
[2019-10-18] MEDS ORDERED: propofoL 200 MG/20 ML VIAL As Ordered ONE ×2 (16:55→17:04)
[2019-10-18 17:44] VITALS: BP 130/75
== END 2019-10-18 21:30 | disposition home or self-care (01) ==
LOC: M OPP 14:17
PROVIDERS: ATTEND Internal Medicine Gastroenterology
DX: Z12.11 Encounter for screening for malignant neoplasm of colon (principal); Z86.010 Personal history of colon polyps; D12.3 Benign neoplasm of transverse colon; E11.9 Type 2 diabetes mellitus without complications; I10 Essential (primary) hypertension; G47.30 Sleep apnea, unspecified; Z79.899 Other long term (current) drug therapy; Z88.1 Allergy status to other antibiotic agents; Z98.84 Bariatric surgery status
CPT/HCPCS: 45385; 88305; J1610

== ENCOUNTER → 2019-12-27 | Outpatient (REF) | payer BC, OTHER ==
[~2019-12-27] MED LIST changes: +CALC1CAP31 PO; +FURO20TA2 PO; +INSUDET SC; +K-TA10TA2 PO; -NS 1,000 ML IV ONE; +SPIR-10 PO
[2019-12-27 14:23] LABS: FERRITIN 10 NG/ML (8-252); IRON (FE) 36 UG/DL (50-170); PERCENT SATURATION 9.4 % (13.2-45.0); TOTAL 25(OH) VITAMIN D 37.3 NG/ML (30.0-100.0); TOTAL IRON BINDING CAPACITY 382 UG/DL (250-450); VITAMIN B12 LEVEL > 2000 PG/ML (247-911)
== END ==
LOC: M LAB REF 13:00
PROVIDERS: ATTEND Internal Medicine
DX: K91.2 Postsurgical malabsorption, not elsewhere classified (principal)

== ENCOUNTER 2020-04-23 14:19 | Inpatient (IN) | payer BC, OTHER ==
[~2020-04-23] VITALS: Ht 160 cm; Wt 140.6 kg
[2020-04-23] MEDS: APIXABAN 5 MG TAB (ELIQUIS) PO SCH (09:00)
[~2020-04-23 14:19] MED LIST changes: -FLON1SPR; +FLON1SPR NARES; -LISI-538 PO; +LISI20TA33 PO; -LISI40TA PO; +LISI40TA4 PO
--- NOTE | 2020-04-23 15:20 | REP ---
INDICATION: DYSPNEA/COUGH. COMPARISON: 08/31/2019. TECHNIQUE: SINGLE PORTABLE AP VIEW OF THE CHEST WAS PERFORMED. FINDINGS: There is mild underlying chronic scarring. There is no acute infiltrate. There is cardiomegaly unchanged. The mediastinal silhouette is unchanged. IMPRESSION: NO ACUTE PULMONARY DISEASE.Stable chronic changes. Cardiomegaly. <Electronically signed by Emilio Ambriz > 04/23/20 [id number]
[2020-04-23 15:43] LABS: BASO # 0.1 10^3/uL (0.0-0.2); BASO % 0.4 % (0.0-1.0); EOS # 0.2 10^3/uL (0.0-0.5); EOS % 1.4 % (0.0-3.0); HEMATOCRIT 36.4 % (36.0-47.0); HEMOGLOBIN 10.9 g/dl (12.0-15.5); LYMPH # 3.2 10^3/uL (1.5-5.0); LYMPH % 22.7 % (24.0-44.0); MEAN CORPUSCULAR HEMOGLOBIN 25.6 pg (27.0-33.0); MEAN CORPUSCULAR HGB CONC 29.9 g/dl (32.0-36.5); MEAN CORPUSCULAR VOLUME 85.6 fl (80.0-96.0); MONO # 0.8 10^3/uL (0.0-0.8); MONO % 5.6 % (2.0-8.0); NEUTROPHILS # 9.8 10^3/uL (1.5-8.5); NEUTROPHILS % 69.3 % (36.0-66.0); PLATELET COUNT, AUTOMATED 358 10^3/uL (150-450); RED BLOOD COUNT 4.25 10^6/uL (4.00-5.40); WHITE BLOOD COUNT 14.1 10^3/uL (4.0-10.0)
[2020-04-23 15:51] LABS: INR 1.14; PROTHROMBIN TIME 14.9 SECONDS (12.5-14.3)
[2020-04-23 16:14] LABS: ALBUMIN 3.1 GM/DL (3.2-5.2); ALT/SGPT 18 U/L (12-78); BILIRUBIN,DIRECT 0.2 MG/DL (0.0-0.2); BILIRUBIN,TOTAL 0.3 MG/DL (0.2-1.0); BLOOD UREA NITROGEN 16 MG/DL (7-18); CALCIUM LEVEL 8.6 MG/DL (8.8-10.2); CARBON DIOXIDE LEVEL 25 MEQ/L (21-32); CHLORIDE LEVEL 109 MEQ/L (98-107); CK-MB VALUE MASS 1.1 NG/ML (<3.6); CPK CREATINE PHOSPHOKINASE 79 U/L (26-192); CREATININE FOR GFR 1.43 MG/DL (0.55-1.30); GLOMERULAR FILTRATION RATE 38.8 (>45); GLUCOSE, FASTING 180 MG/DL (70-100); MB/CK RELATIVE INDEX 1.39 (< OR =4); NT-PRO BNP 1791 PG/ML (<125); SODIUM LEVEL 141 MEQ/L (136-145); TOTAL PROTEIN 7.1 GM/DL (6.4-8.2); TROPONIN I < 0.02 NG/ML (< 0.10)
[2020-04-23 16:19] LABS: RSV AMPLIFICATION NEGATIVE (NEGATIVE)
[2020-04-23] MEDS ORDERED: ISOVUE-370 76% 100ML VIAL As Ordered ONE (18:01)
--- NOTE | 2020-04-23 19:24 | REPVR ---
PROCEDURE INFORMATION: Exam: CT Angiography Chest With Contrast Exam date and time: 04/23/2020 6:20 PM Age: 70 years old Clinical indication: Shortness of breath; Chest pain; Additional info: Shortness of breath/chest pain TECHNIQUE: Imaging protocol: Computed tomographic angiography of the chest with contrast. 3D rendering (Not supervised by radiologist): MIP and/or 3D reconstructed images were created by the technologist. Radiation optimization: All CT scans at this facility use at least one of these dose optimization techniques: automated exposure control; mA and/or kV adjustment per patient size (includes targeted exams where dose is matched to clinical indication); or iterative reconstruction. Contrast material: ISOVUE 370; Contrast volume: 100 ml; Contrast route: INTRAVENOUS (IV); COMPARISON: [facility] PORTABLE CHEST X-RAY 04/23/2020 3:12 PM FINDINGS: Pulmonary arteries: There is a thin web like structure in the left lower lobe segmental pulmonary artery. Aorta: Unremarkable. No aortic aneurysm. No aortic dissection. Lungs: There is ground-glass patchy opacification at the right lung base. Pleural spaces: Unremarkable. No pneumothorax. No pleural effusion. Heart: Unremarkable. No cardiomegaly. No pericardial effusion. Lymph nodes: Unremarkable. No enlarged lymph nodes. Bones/joints: Unremarkable. No acute fracture. Soft tissues: Unremarkable. IMPRESSION: Thin web like structure in the left lower lobe segmental pulmonary artery, possibly sequelae of chronic pulmonary embolism. Ground-glass patchy opacification in the right lower lobe. Etiology infectious/inflammatory. Electronically signed by: João Davila On 04/23/2020 19:25:31 PM
--- NOTE | 2020-04-23 19:41 | REPVR ---
PROCEDURE INFORMATION: Exam: CT Abdomen And Pelvis With Contrast Exam date and time: 04/23/2020 6:20 PM Age: 70 years old Clinical indication: Other: Leukocytosis TECHNIQUE: Imaging protocol: Computed tomography of the abdomen and pelvis with contrast. Radiation optimization: All CT scans at this facility use at least one of these dose optimization techniques: automated exposure control; mA and/or kV adjustment per patient size (includes targeted exams where dose is matched to clinical indication); or iterative reconstruction. Contrast material: ISOVUE 370; Contrast volume: 100 ml; Contrast route: INTRAVENOUS (IV); COMPARISON: CT ABD/PEL W/IV ORAL CONTRAS 01/09/2017 3:02 PM FINDINGS: Lungs: Patchy ground-glass opacification in the visualized right lung base. Mediastinal space: Small hiatal hernia. Liver: Normal. No mass. Gallbladder and bile ducts: Cholecystectomy clips. Pancreas: Atrophy of the pancreas. Spleen: Normal. No splenomegaly. Adrenal glands: Normal. No mass. Kidneys and ureters: Normal. No hydronephrosis. Stomach and bowel: Evidence of prior gastric surgery. Appendix: No evidence of appendicitis. Intraperitoneal space: Unremarkable. No free air. No significant fluid collection. Vasculature: IVC filter. Hypodensity in the portal vein which is suspicious for thrombus in the portal vein and superior mesenteric vein. Lymph nodes: Unremarkable. No enlarged lymph nodes. Urinary bladder: Unremarkable as visualized. Reproductive: Unremarkable as visualized. Bones/joints: Degenerative changes of the spine. Soft tissues: Diffuse anasarca. 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 Delayed venous phase images if possible can be obtained,otherwise follow-up with ultrasound for evaluation. Diffuse anasarca. COMMENTS: For patients with an IVC filter, recommend assessment for a management plan for the patients IVC filter. If there is no established management plan, recommend referral to an interventional clinician on a nonemergent basis for evaluation. Electronically signed by: João Davila On 04/23/2020 19:41:09 PM
[2020-04-23] MEDS ORDERED: METO1TAB33 PO ×2 (20:24)
[2020-04-23] MEDS ORDERED: VITMTA PO (20:24)
[2020-04-23] MEDS ORDERED: LISI20TA33 PO (20:24)
[2020-04-23] MEDS ORDERED: ELIQ5TAB PO (20:24)
[2020-04-23] MEDS ORDERED: CALC-176 PO (20:28)
[2020-04-23] MEDS ORDERED: D31000TA2 PO (20:28)
--- NOTE | 2020-04-23 20:49 | REPVR ---
PROCEDURE INFORMATION: Exam: US Duplex Lower Extremity Veins, Bilateral Exam date and time: 04/23/2020 8:41 PM Age: 70 years old Clinical indication: Pain; Leg, lower; Bilateral; Additional info: Edema R/O dvt TECHNIQUE: Imaging protocol: Real-time duplex ultrasound of the extremities with 2-D pierce scale, color Doppler flow and spectral waveform analysis with image documentation. Complete exam focused on the bilateral lower extremity veins. COMPARISON: No relevant prior studies available. FINDINGS: Right deep veins: Unremarkable. The common femoral, femoral, proximal profunda femoral and popliteal veins are patent without thrombus. Normal Doppler waveforms. Normal compressibility and/or augmentation response. Right superficial veins: Saphenofemoral junction is patent without thrombus. Left deep veins: Unremarkable. The common femoral, femoral, proximal profunda femoral and popliteal veins are patent without thrombus. Normal Doppler waveforms. Normal compressibility and/or augmentation response. Left superficial veins: Saphenofemoral junction is patent without thrombus. Soft tissues: Unremarkable. IMPRESSION: No evidence of deep vein thrombosis. Electronically signed by: João Davila On 04/23/2020 20:50:07 PM
[2020-04-23] MEDS ORDERED: GLUCAGON INJ 1MG VIAL SC PRN (22:35)
[2020-04-23] MEDS ORDERED: GLUCOSE 4GM CHEW TABLET PO PRN (22:35)
[2020-04-23] MEDS ORDERED: MOM 30ML SUSPENSION UDC PO PRN (22:35)
[2020-04-23] MEDS ORDERED: DEXTROSE 50% 50 ML SYRINGE IV PRN (22:35)
[2020-04-23] MEDS ORDERED: ACETAMINOPHEN TAB 650MG DOSE (2X325MG) PO PRN (22:35)
[2020-04-23] MEDS ORDERED: MAALOX 30 ML SUSP *UDC PO PRN (22:35)
--- NOTE | 2020-04-23 22:56 | HPEPDOC ---
[facility] Medical History & Physical Date of Admission Apr 23, 2020 Date of Service: Apr 23, 2020 Attending Physician: RENEA BATEMAN MD History and Physical CHIEF COMPLAINT: fatigue, SOB, chest tightness, generalized weakness HISTORY OF PRESENT ILLNESS: 70 year old female with PMHx detailed below prese nted to the ED today after a few days of worsening symptoms. She states she has been feeling fatigue and generalized weakness. She also has intermittent shortness of breath with chest tightness which occur together. She states that these symptoms have been bothering her off and on over the past year. However, she notes worsening symptoms over the past few days. She was concerned today at work when a coworker said she looked unwell and the patient decided to present to the ED for evaluation. PAST MEDICAL HISTORY: Atrial fibrillation on Eliquis HTN DM Morbid Obesity Endometrial hyperplasia GERD KARISHMA PAST SURGICAL HISTORY: Meaghan-en-Y gastric bypass IVC filter placement related to bypass Multiple D&C's Appendectomy Cholecystectomy Discectomy Colonoscopies with polyp removal SOCIAL HISTORY: Never smoker. Denies alcohol use. Denies IV or illicit substance use. Lives at home alone FAMILY HISTORY: Noncontributory to this admission ALLERGIES: Please see below. REVIEW OF SYSTEMS: CONSTITUTIONAL: Positive per HPI. Denies fevers, chills, night sweats, unexpected change in weight. HEENT: Denies change in vision, change in hearing. CARDIOVASCULAR: Positive per HPI. Denies palpitations, lightheadedness. RESPIRATORY: Denies dyspnea, cough, wheezing. GASTROINTESTINAL: Denies nausea, vomiting, abdominal pain, diarrhea, constipation, blood in stool. GENITOURINARY: Denies dysuria, urinary frequency, urinary urgency. SKIN: Denies rash, lesions. MUSCULOSKELETAL: Endorses chronic back pain. NEUROLOGICAL: Denies headache, dizziness. PSYCHIATRIC: Denies change in mood. HOME MEDICATIONS: Please see below. PHYSICAL EXAMINATION: VITAL SIGNS: See below GENERAL: Alert, comfortable, in no acute distress HEENT: Normocephalic, atraumatic, PERRLA, sclera anicteric, moist mucous membranes NECK: Supple, trachea midline CARDIOVASCULAR: Regular rate and rhythm, normal S1 and S2. No murmurs, rubs, or gallops RESPIRATORY: Clear to auscultation bilaterally with equal air entry bilaterally. No wheezing, rhonchi, or rales. ABDOMEN: Obese, soft, nontender, nondistended, bowel sounds present EXTREMITIES: Bilateral 1+ pitting edema in the lower extremities. Pulses 2+/4 in bilateral upper and lower extremities SKIN: [place], warm, dry NEUROLOGIC: Alert and oriented x3 to person, place and time. No focal deficits appreciated PSYCHIATRIC: Mood and affect appropriate LABORATORY DATA: See below. IMAGING: (impressions per radiologist report) -CXR No acute pulmonary disease. Stable chronic changes. Cardiomegaly. -CTA chest Thin web like structure in the left lower lobe segmental pulmonary artery, p ossibly sequelae of chronic pulmonary embolism. Ground-glass patchy opacification in the right lower lobe. Etiology infectious/inflammatory. -CT abdomen/pelvis Defect in the portal and superior mesenteric vein which is suspicious for thrombus/artifact. Delayed venous phase images if possible can be obtained,otherwise follow-up with ultrasound for evaluation. Diffuse anasarca. -Vascular U/S No evidence of deep vein thrombosis. MICROBIOLOGY: Please see below. ASSESSMENT: 70 year old female with PMHx including a fib on eliquis, HTN, DM, morbid obesity, and endometrial hyperplasia presented to the ED with fatigue and shortness of breath found to have possible chronic PE on CTA chest as well as question of portal vein thrombosis on CT abdomen PLAN: 1. Question of portal vein thrombosis on CT abdomen - f/u abdominal u/s in the morning. pt will be kept NPO until then - We will continue her on eliquis at this point. if the thrombosis is confirmed she may need to be switched to Coumadin 2. Atrial fibrillation, rate controlled - continue on home metoprolol and eliquis 3. HTN - continue on home lisinopril 4. Diabetes mellitus - not currently on medication at home - consistent carb diet after U/S is complete - SSI ACHS when diet is started 5. Endometrial hyperplasia - hold home Megace due to concern of thrombosis 6. GERD - continue home PPI 7. KARISHMA - continue CPAP at night, home setting of 16 cmH2O 8. Morbid Obesity - BMI 53, complicates care DVT prophylaxis: on full anticoagulation with Eliquis Disposition: admitted inpatient to med/surg expect greater than two midnights stay Vital Signs Vital Signs Date Time Temp Pulse Resp B/P (MAP) Pulse Ox O2 Delivery O2 Flow Rate FiO2 04/23/20 22:45 85 18 172/73 (106) 99 Room Air 04/23/20 17:00 98.2 Laboratory Data Labs 24H Laboratory Tests 2 04/23/20 15:31: Immature Granulocyte % (Auto) 0.6, Neutrophils (%) (Auto) 69.3H, Lymphocytes (%) (Auto) 22.7L, Monocytes (%) (Auto) 5.6, Eosinophils (%) (Auto) 1.4, Basophils (%) (Auto) 0.4, Neutrophils # (Auto) 9.8H, Lymphocytes # (Auto) 3.2, Monocytes # (Auto) 0.8, Eosinophils # (Auto) 0.2, Basophils # (Auto) 0.1, Nucleated Red Blood Cells % (auto) 0.0, Prothrombin Time 14.9H, Prothromb Time International Ratio 1.14, Anion Gap 7L, Glomerular Filtration Rate 38.8L, Calcium Level 8.6L, Magnesium Level 2.0, Total Bilirubin 0.3, Direct Bilirubin 0.2, Aspartate Amino Transf (AST/SGOT) 9, Alanine Aminotransferase (ALT/SGPT) 18, Alkaline Phosphatase 129H, Total Creatine Kinase 79, Creatine Kinase MB 1.1, Creatine Kinase MB Relative Index 1.39, Troponin I < 0.02, IO-Tel-F-Type Natriuretic Peptide 1791H, Total Protein 7.1, Albumin 3.1L, Albumin/Globulin Ratio 0.8L, Thyroid Stimulating Hormone (TSH) 0.670, Coronavirus (COVID-19)(PCR) NEGATIVE, Influenza Type A (RT-PCR) NEGATIVE, Influenza Type B (RT-PCR) NEGATIVE, Respiratory Syncytial Virus (PCR) NEGATIVE 04/23/20 16:27: Urine Color YELLOW, Urine Appearance CLEAR, Urine pH 6.0, Urine Specific [place] 1.008, Urine Protein 2+H, Urine Glucose (UA) NEGATIVE, Urine Ketones NEGATIVE, Urine Blood 1+H, Urine Nitrite NEGATIVE, Urine Bilirubin NEGATIVE, Urine Urobilinogen 0.2, Urine Leukocyte Esterase TRACEH, Urine WBC (Auto) 5H, Urine RBC (Auto) 7H, Urine Hyaline Casts (Auto) 0, Urine Bacteria (Auto) NEGATIVE, Urine Squamous Epithelial Cells 0, Urine Sperm (Auto) 04/23/20 19:56: Activated Partial Thromboplast Time 29.3 CBC/BMP Laboratory Tests 04/23/20 15:31 Microbiology Microbiology 04/23/20 Urine Culture, Received Pending Home Medications Scheduled Anastrozole (Anastrozole) 1 Mg Tab, 1 MG PO DAILY Apixaban (Eliquis) 5 Mg Tablet, 5 MG PO BID Atorvastatin Calcium (Lipitor) 20 Mg Tab, 20 MG PO QHS Calcitriol (Calcitriol) 0.25 Mcg Capsule, 0.25 MCG PO BID Calcium Citrate/Vitamin D3 (Calcium Cit-Vit D 250-200 Tab) 1 Each Tablet, 1 TAB PO BID Cholecalciferol (Vitamin D3) (Vitamin D3) 1,000 Unit Tablet, 2,000 UNITS PO BID Cyanocobalamin (Vitamin B-12) (Vitamin B-12) 500 Mcg Tablet, 500 MCG PO DAILY Dulaglutide (Trulicity) 1.5 Mg/0.5 Ml Pen.injctr, 1.5 MG SC QWEEK SATURDAYS Fluticasone Propionate (Flonase Allergy Relief) 50 Mcg/Act Spr, 1 SPRAY NARES QHS Furosemide (Furosemide) 20 Mg Tablet, 20 MG PO DAILY Insulin Detemir (Levemir) 100 Unit/1 Ml Vial, 22 UNITS SC QHS Lisinopril (Lisinopril) 20 Mg Tablet, 20 MG PO QHS Megestrol Acetate (Megestrol Acetate) 40 Mg Tablet, 40 MG PO QHS Metoprolol Succinate (Metoprolol Succinate) 100 Mg Tab.er.24h, 100 MG PO QHS Metoprolol Succinate (Metoprolol Succinate) 100 Mg Tab.er.24h, 50 MG PO DAILY Multivitamins (Thera M Plus Tablet) 1 Each Tablet, 1 TAB PO DAILY Pantoprazole Sodium (Pantoprazole Sodium) 40 Mg Tab, 40 MG PO BID Potassium Chloride (K-Tab ER) 10 Meq Tablet.er, 10 MEQ PO BID Spironolactone (Spironolactone) 25 Mg Tablet, 25 MG PO BID Allergies Coded Allergies: Penicillins (Unverified Allergy, Unknown, RASH, 04/23/20) NSAIDS (Non-Steroidal Anti-Inflamma (Verified Adverse Reaction, Unknown, NOT ABLE TO TAKE, HAD BARIATRIC SURGERY, 10/11/19) clindamycin (Verified Adverse Reaction, Unknown, GI UPSET, 10/11/19) oxycodone (Verified Adverse Reaction, Unknown, NOT ABLE TO TOLERATE, STOMACH UPSET, 10/11/19) A-FIB/CHADSVASC A-FIB History Current/History of A-Fib/PAF?: Yes Current PO Anticoag Therapy: Yes GME ATTESTATION GME ATTESTATION My faculty preceptor for this patient encounter was physically present during the encounter and was fully available. All aspects of the patient interview, examination, medical decision making process, and medical care plan development were reviewed and approved by the faculty preceptor. The faculty preceptor is aware and concurs with the plan as stated in the body of this note and will attest to such by his/her cosignature. ATTENDING NOTE Patient was seen on 04/23/2020 I, Judson Bateman, have independently examined this patient and performed my own physical exam, as well as reviewed the documentation and edited where necessary. I have discussed in detail with the resident / student the findings and plan of treatment as documented by the resident / student and edited their note. I agree with their findings and treatment plan and have edited their documentation. I will continue to follow the patient during this hospital stay. DORIS HOLM D.O. Apr 23, 2020 22:56 RENEA BATEMAN MD Apr 24, 2020 20:25
[2020-04-24 00:30] VITALS: BP 161/73
[2020-04-24] MEDS: ATORVASTATIN 20 MG TAB PO SCH ×2 (00:59→20:29)
[2020-04-24] MEDS: APIXABAN 5 MG TAB (ELIQUIS) PO SCH ×3 (00:59→20:28)
[2020-04-24] MEDS: POTASSIUM CHLORIDE 10 MEQ SR TABLET PO SCH ×3 (00:59→20:28)
[2020-04-24] MEDS: SPIRONOLACTONE 25 MG TAB PO SCH ×3 (00:59→20:28)
[2020-04-24] MEDS: PANTOPRAZOLE 40MG TAB (PROTONIX) PO SCH ×3 (00:59→20:28)
[2020-04-24] MEDS: CALCITRIOL 0.25 MCG CAP (S0169) PO SCH ×3 (01:00→20:29)
[2020-04-24] MEDS: METOPROLOL SUCC (TopROL XL) 100MG *XL* TAB PO SCH ×2 (01:00→20:29)
--- NOTE | 2020-04-24 03:27 | ECGEPIP ---
[facility] - ED Test Date: 2020-04-23 Pat Name: LALA GUERRERO Department: Room: - Gender: Female Class B Driver: : [id number] Requested By: DELIO Carrera Order Number: [id number] Reading MD: Delio Barbosa Measurements Intervals [place] Rate: 84 P: TN: QRS: 89 QRSD: 58 T: 1 QT: 368 QTc: 434 Interpretive Statements Atrial fibrillation with premature ventricular or aberrantly conducted complexes Low voltage QRS Delayed anterior R wave progression Previous tracing done 01-09-17 showed normal sinus rhythm Electronically Signed on 04-24-2020 3:27:32 EST by Delio Barbosa
[2020-04-24 06:00] VITALS: BP 144/66
[2020-04-24 06:40] LABS: HEMATOCRIT 32.1 % (36.0-47.0); HEMOGLOBIN 9.8 g/dl (12.0-15.5); MEAN CORPUSCULAR HEMOGLOBIN 26.1 pg (27.0-33.0); MEAN CORPUSCULAR HGB CONC 30.5 g/dl (32.0-36.5); MEAN CORPUSCULAR VOLUME 85.6 fl (80.0-96.0); PLATELET COUNT, AUTOMATED 337 10^3/uL (150-450); RED BLOOD COUNT 3.75 10^6/uL (4.00-5.40); WHITE BLOOD COUNT 10.8 10^3/uL (4.0-10.0)
[2020-04-24 07:09] LABS: ALBUMIN 2.5 GM/DL (3.2-5.2); BILIRUBIN,TOTAL 0.5 MG/DL (0.2-1.0); CALCIUM LEVEL 8.3 MG/DL (8.8-10.2); CREATININE FOR GFR 1.24 MG/DL (0.55-1.30); GLOMERULAR FILTRATION RATE 45.8 (>45); POTASSIUM SERUM 4.1 MEQ/L (3.5-5.1); TOTAL PROTEIN 5.9 GM/DL (6.4-8.2)
--- NOTE | 2020-04-24 10:14 | REP ---
INDICATION: with liver doppler for portal vein thrombosis- npo overnight COMPARISON: None TECHNIQUE: Real time B-mode pierce scale and color Doppler ultrasound examination using curved array transducer. FINDINGS: Hepatosplenomegaly noted without focal hepatic or splenic lesion identified. Liver measures 19.7 cm in craniocaudal length. Splenic index equals 538. Evidence for prior cholecystectomy. No biliary dilatation is appreciated and the common bile duct measures 4 mm diameter. Pancreas is grossly normal. Bilateral kidneys demonstrate cortical thinning and increased central sinus fat consistent with chronic change. No hydronephrosis. Right kidney measures 11.1 x 4.5 x 5.2 cm. Left kidney measures 11.6 x 5.1 x 4.7 cm. No ascites. Doppler interrogation demonstrates normal waveforms, flow direction and velocities to the portal and splenic veins hepatic artery demonstrates normal arterial wave pattern and velocity. Hepatic venous waveforms suggest underlying cardiac dysfunction and suspected tricuspid regurgitation. Main portal vein: 20.7 cm/sec Intrahepatic portal veins: 15.0-16.6 cm/sec Hepatic artery: 85.9 cm/sec (RI 0.71) Splenic vein: 30.1 cm/sec. IMPRESSION: 1. Hepatosplenomegaly. 2. Normal Doppler interrogation to the portal vascular system. 3. Hepatic veins suggest underlying cardiac dysfunction and tricuspid regurgitation. <Electronically signed by Williams Gonsales > 04/24/20 1011
[2020-04-24] MEDS: VITAMIN D 1,000 INTERNATIONAL UNITS TABLET PO SCH ×2 (10:32→20:28)
[2020-04-24] MEDS: METOPROLOL SUCC (TopROL XL) 50MG **XL** TAB PO SCH (10:33)
[2020-04-24] MEDS: FUROSEMIDE 20 MG TAB PO SCH (10:33)
[2020-04-24] MEDS: CYANOCOBALAMIN 500 MCG TAB PO SCH (10:33)
[2020-04-24] MEDS: MULTIVITAMINS/MINERALS THERAP 1 TAB PO SCH (10:33)
[2020-04-24] MEDS ORDERED: GLUCAGON INJ 1MG VIAL SC PRN (10:50)
[2020-04-24] MEDS ORDERED: DEXTROSE 50% 50 ML SYRINGE IV PRN (10:50)
[2020-04-24] MEDS ORDERED: GLUCOSE 4GM CHEW TABLET PO PRN (10:50)
[2020-04-24] MEDS: HumaLOG INSULIN (NovoLOG) PER UNIT SC SCH ×2 (13:30→17:40)
[2020-04-24 14:00] VITALS: BP 143/80
--- NOTE | 2020-04-24 15:00 | IPNPDOC ---
Text Note Date of Service The patient was seen on 04/24/20. NOTE Subjective: Patient stated that she feels little better today, more energy. She continues to complain of some chest tightness, but denies any pain Objective: GENERAL APPEARANCE: Morbidly obese female HEENT: no scleral icterus, no JVD, EOMI CARDIOVASCULAR: Irregularly irregular LUNGS: Diminished lung sounds bilaterally ABDOMEN: soft & not tender w palpitation, obese MUSCULOSKELETAL: no cyanosis, no swelling INTEGUMENT: no generalized pallor NEUROLOGICAL: cranial nerve function from 2-12 intact intact, follows commands, speech not dysarthric Assessment and plan Patient is 70 years old female with past history of atrial fibrillation on Eliquis, HTN, DM, morbid obesity, and endometrial hyperplasia presented to the ED with fatigue and shortness of breath found to have possible chronic PE on CTA chest as well as question of portal vein thrombosis on CT abdomen. Generalized weakness/fatigue PT/OT Question of portal vein thrombosis on CT abdomen CT showed Defect in the portal and superior mesenteric vein which is suspicious for thrombus/artifact. Doppler ultrasound showed Hepatosplenomegaly. Normal Doppler interrogation to the portal vascular system. Hepatic veins suggest underlying cardiac dysfunction and tricuspid regurgitation I will ask Dr Hughes to review these findings due to equivocal result Atrial fibrillation Rate controlled Continue oral target anticoagulation Continue metoprolol Hypertension Blood pressures under control Continue home cardioprotective medication Type 2 diabetes Diabetes diet Insulin sliding scale Detemir Endometrial hyperplasia We'll Continue home meds after rule out of portal vein thrombosis GERD - continue home PPI KARISHMA - continue CPAP at night, home setting of 16 cmH2O Morbid Obesity - BMI 53, complicates care VS,Vandana, I+O VS, Vandana, I+O Laboratory Tests 04/23/20 15:31 04/24/20 06:25 Vital Signs Date Time Temp Pulse Resp B/P (MAP) Pulse Ox O2 Delivery O2 Flow Rate FiO2 04/24/20 10:33 87 158/78 04/24/20 06:00 97.6 20 95 Nasal Cannula 2.0 I&O- Last 24 Hours up to 6 AM 04/24/20 05:59 Intake Total 0 ml Output Total 950 ml Balance -950 ml RUDDY DOWNS DO Apr 24, 2020 15:00
--- NOTE | 2020-04-24 15:08 | CR.PDOC ---
General Date of Consultation: Apr 24, 2020 Consultation REASON FOR CONSULTATION/CHIEF COMPLAINT: Concern for portal vein and SMV thrombosis HISTORY OF PRESENT ILLNESS: This is a very pleasant 70-year-old patient whom we were consulted on for evaluation of portal vein and SMV thrombosis. I have reviewed the CT angiogram of abdomen and pelvis. This is not a study designed to evaluate the venous system. There is frequently inconsistent contrast opacification of the venous system depending on flow rates and timing. This was appropriately followed up with an abdominal ultrasound that showed the portal vein and mesenteric veins are patent. No vascular issue at this time. There was also concern on whether her IVC filter should be removed if she had portal vein thrombosis. My generalized answer for this would be no. These are 2 separate i ssues. The infrarenal IVC filter is not located anywhere near the portal vein or superior mesenteric vein, nor would it generally result in, or contribute to, the thrombosis of either. ALLERGIES: Please see below. HOME MEDICATIONS: Please see below. PAST MEDICAL HISTORY: Diabetes, hypertension, A. fib, GERD, arthritis, morbid obesity PAST SURGICAL HISTORY: Appendectomy, cholecystectomy, discectomy, gynecologic procedures, Meaghan-en-Y gastric bypass with IVC filter placement SOCIAL HISTORY: Denies tobacco, alcohol, or illicit drug use FAMILY HISTORY: Heart disease and diabetes ALLERGIES: Please see below. REVIEW OF SYSTEMS: CONSTITUTIONAL: Positive malaise. Denies fevers chills HEENT: Denies vision loss or hearing loss CARDIOVASCULAR: Denies chest pain but did note occasional chest tightness RESPIRATORY: Complained of intermittent shortness of breath GASTROINTESTINAL: Denies nausea vomiting GENITOURINARY: Denies dysuria SKIN: Denies rash or wounds MUSCULOSKELETAL: Positive back pain and distal neuropathy, denies claudication NEUROLOGICAL: Denies headache, seizures, stroke PSYCHIATRIC: Positive depression HOME MEDICATIONS: Please see below. PHYSICAL EXAMINATION: VITAL SIGNS: See below GENERAL: No acute distress, medically stable HEENT: NC, TMI, vision grossly intact NECK: No carotid bruits CARDIOVASCULAR: RRR RESPIRATORY: CTA, no work of breathing noted ABDOMEN: Obese nondistended nontender EXTREMITIES: Distal pulses intact, edema present bilateral lower extremities SKIN: No ulcers or lesions noted NEUROLOGIC: Alert and oriented x3, moves all extremities equally. No focal deficits appreciated PSYCHIATRIC: Pleasant and cooperative LABORATORY DATA: Please see below. ASSESSMENT/PLAN: Pleasant 70-year-old patient, patent portal vein and mesenteric veins 1. No vascular intervention required at this time. We appreciate the opportunity to participate in care of this patient. Vital Signs/I&O Vital Signs Date Time Temp Pulse Resp B/P (MAP) Pulse Ox O2 Delivery O2 Flow Rate FiO2 04/24/20 10:33 87 158/78 04/24/20 06:00 97.6 20 95 Nasal Cannula 2.0 I&O- Last 24 Hours up to 6 AM 04/24/20 06:00 Intake Total 0 ml Output Total 1050 ml Balance -1050 ml Laboratory Data Labs 24H Laboratory Tests 2 04/23/20 15:31: Immature Granulocyte % (Auto) 0.6, Neutrophils (%) (Auto) 69.3H, Lymphocytes (%) (Auto) 22.7L, Monocytes (%) (Auto) 5.6, Eosinophils (%) (Auto) 1.4, Basophils (%) (Auto) 0.4, Neutrophils # (Auto) 9.8H, Lymphocytes # (Auto) 3.2, Monocytes # (Auto) 0.8, Eosinophils # (Auto) 0.2, Basophils # (Auto) 0.1, Nucleated Red Blood Cells % (auto) 0.0, Prothrombin Time 14.9H, Prothromb Time International Ratio 1.14, Anion Gap 7L, Glomerular Filtration Rate 38.8L, Calcium Level 8.6L, Magnesium Level 2.0, Total Bilirubin 0.3, Direct Bilirubin 0.2, Aspartate Amino Transf (AST/SGOT) 9, Alanine Aminotransferase (ALT/SGPT) 18, Alkaline Phosphatase 129H, Total Creatine Kinase 79, Creatine Kinase MB 1.1, Creatine Kinase MB Relative Index 1.39, Troponin I < 0.02, FJ-Hmk-F-Type Natriuretic Peptide 1791H, Total Protein 7.1, Albumin 3.1L, Albumin/Globulin Ratio 0.8L, Thyroid Stimulating Hormone (TSH) 0.670, Coronavirus (COVID-19)(PCR) NEGATIVE, Influenza Type A (RT-PCR) NEGATIVE, Influenza Type B (RT-PCR) NEGATIVE, Respiratory Syncytial Virus (PCR) NEGATIVE 04/23/20 16:27: Urine Color YELLOW, Urine Appearance CLEAR, Urine pH 6.0, Urine Specific [place] 1.008, Urine Protein 2+H, Urine Glucose (UA) NEGATIVE, Urine Ketones NEGATIVE, Urine Blood 1+H, Urine Nitrite NEGATIVE, Urine Bilirubin NEGATIVE, Urine Urobilinogen 0.2, Urine Leukocyte Esterase TRACEH, Urine WBC (Auto) 5H, Urine RB C (Auto) 7H, Urine Hyaline Casts (Auto) 0, Urine Bacteria (Auto) NEGATIVE, Urine Squamous Epithelial Cells 0, Urine Sperm (Auto) 04/23/20 19:56: Activated Partial Thromboplast Time 29.3 04/24/20 01:08: Bedside Glucose (Misc Panel) 126H 04/24/20 06:25: Nucleated Red Blood Cells % (auto) 0.0, Anion Gap 6L, Glomerular Filtration Rate 45.8, Calcium Level 8.3L, Total Bilirubin 0.5#, Aspartate Amino Transf (AST/SGOT) 8, Alanine Aminotransferase (ALT/SGPT) 13, Alkaline Phosphatase 110, Total Protein 5.9L, Albumin 2.5L, Albumin/Globulin Ratio 0.7L 04/24/20 11:41: Bedside Glucose (Misc Panel) 121H CBC/BMP Laboratory Tests 04/23/20 15:31 04/24/20 06:25 Microbiology Microbiology 04/23/20 Urine Culture - Final, Complete Allergies Coded Allergies: Penicillins (Unverified Allergy, Unknown, RASH, 04/23/20) NSAIDS (Non-Steroidal Anti-Inflamma (Verified Adverse Reaction, Unknown, NOT ABLE TO TAKE, HAD BARIATRIC SURGERY, 10/11/19) clindamycin (Verified Adverse Reaction, Unknown, GI UPSET, 10/11/19) oxycodone (Verified Adverse Reaction, Unknown, NOT ABLE TO TOLERATE, STOMACH UPSET, 10/11/19) Home Medications Scheduled Anastrozole (Anastrozole) 1 Mg Tab, 1 MG PO DAILY, (Reported) Apixaban (Eliquis) 5 Mg Tablet, 5 MG PO BID, (Reported) Atorvastatin Calcium (Lipitor) 20 Mg Tab, 20 MG PO QHS, (Reported) Calcitriol (Calcitriol) 0.25 Mcg Capsule, 0.25 MCG PO BID, (Reported) Calcium Citrate/Vitamin D3 (Calcium Cit-Vit D 250-200 Tab) 1 Each Tablet, 1 TAB PO BID, (Reported) Cholecalciferol (Vitamin D3) (Vitamin D3) 1,000 Unit Tablet, 2,000 UNITS PO BID, (Reported) Cyanocobalamin (Vitamin B-12) (Vitamin B-12) 500 Mcg Tablet, 500 MCG PO DAILY, (Reported) Dulaglutide (Trulicity) 1.5 Mg/0.5 Ml Pen.injctr, 1.5 MG SC QWEEK, (Reported) SATURDAYS Fluticasone Propionate (Flonase Allergy Relief) 50 Mcg/Act Spr, 1 SPRAY NARES QHS, (Reported) Furosemide (Furosemide) 20 Mg Tablet, 20 MG PO DAILY, (Reported) Insulin Detemir (Levemir) 100 Unit/1 Ml Vial, 22 UNITS SC QHS, (Reported) Lisinopril (Lisinopril) 20 Mg Tablet, 20 MG PO QHS, (Reported) Megestrol Acetate (Megestrol Acetate) 40 Mg Tablet, 40 MG PO QHS, (Reported) Metoprolol Succinate (Metoprolol Succinate) 100 Mg Tab.er.24h, 100 MG PO QHS, (Reported) Metoprolol Succinate (Metoprolol Succinate) 100 Mg Tab.er.24h, 50 MG PO DAILY, (Reported) Multivitamins (Thera M Plus Tablet) 1 Each Tablet, 1 TAB PO DAILY, (Reported) Pantoprazole Sodium (Pantoprazole Sodium) 40 Mg Tab, 40 MG PO BID, (Reported) Potassium Chloride (K-Tab ER) 10 Meq Tablet.er, 10 MEQ PO BID, (Reported) Spironolactone (Spironolactone) 25 Mg Tablet, 25 MG PO BID, (Reported) TANNER CATALAN MD Apr 24, 2020 15:08
[2020-04-24] MEDS ORDERED: HumaLOG INSULIN (NovoLOG) PER UNIT SC SCH (21:00)
[2020-04-24] MEDS ORDERED: LEVEMIR (INSULIN DETEMIR) 1 UNITS/0.01ML SC SCH (21:00)
[2020-04-24] MEDS ORDERED: FLUTICASONE PROP 0.05% NASAL SPRAY 16 GM (FLONASE) NARES SCH (21:00)
[2020-04-24 22:00] VITALS: BP 159/72
[2020-04-25 06:00] VITALS: BP 150/68
[2020-04-25 08:17] LABS: BASO # 0.1 10^3/uL (0.0-0.2); BASO % 0.4 % (0.0-1.0); EOS # 0.2 10^3/uL (0.0-0.5); EOS % 1.9 % (0.0-3.0); HEMATOCRIT 34.5 % (36.0-47.0); HEMOGLOBIN 10.2 g/dl (12.0-15.5); LYMPH # 2.7 10^3/uL (1.5-5.0); LYMPH % 23.8 % (24.0-44.0); MEAN CORPUSCULAR HEMOGLOBIN 25.6 pg (27.0-33.0); MEAN CORPUSCULAR HGB CONC 29.6 g/dl (32.0-36.5); MEAN CORPUSCULAR VOLUME 86.5 fl (80.0-96.0); MONO # 0.8 10^3/uL (0.0-0.8); MONO % 6.8 % (2.0-8.0); NEUTROPHILS # 7.7 10^3/uL (1.5-8.5); NEUTROPHILS % 66.7 % (36.0-66.0); PLATELET COUNT, AUTOMATED 358 10^3/uL (150-450); RED BLOOD COUNT 3.99 10^6/uL (4.00-5.40); WHITE BLOOD COUNT 11.5 10^3/uL (4.0-10.0)
[2020-04-25 08:37] LABS: ALBUMIN 2.8 GM/DL (3.2-5.2); BILIRUBIN,TOTAL 0.4 MG/DL (0.2-1.0); CALCIUM LEVEL 8.4 MG/DL (8.8-10.2); CREATININE FOR GFR 1.31 MG/DL (0.55-1.30); MAGNESIUM LEVEL 2.1 MG/DL (1.8-2.4); POTASSIUM SERUM 4.3 MEQ/L (3.5-5.1); TOTAL PROTEIN 6.2 GM/DL (6.4-8.2)
[2020-04-25] MEDS: HumaLOG INSULIN (NovoLOG) PER UNIT SC SCH ×2 (09:06→13:06)
[2020-04-25 09:07] VITALS: BP 157/80
[2020-04-25] MEDS: FUROSEMIDE 20 MG TAB PO SCH (09:07)
[2020-04-25] MEDS: CYANOCOBALAMIN 500 MCG TAB PO SCH (09:07)
[2020-04-25] MEDS: VITAMIN D 1,000 INTERNATIONAL UNITS TABLET PO SCH (09:07)
[2020-04-25] MEDS: PANTOPRAZOLE 40MG TAB (PROTONIX) PO SCH (09:07)
[2020-04-25] MEDS: CALCITRIOL 0.25 MCG CAP (S0169) PO SCH (09:07)
[2020-04-25] MEDS: APIXABAN 5 MG TAB (ELIQUIS) PO SCH (09:07)
[2020-04-25] MEDS: MULTIVITAMINS/MINERALS THERAP 1 TAB PO SCH (09:07)
[2020-04-25] MEDS: SPIRONOLACTONE 25 MG TAB PO SCH (09:07)
[2020-04-25] MEDS: METOPROLOL SUCC (TopROL XL) 50MG **XL** TAB PO SCH (09:07)
[2020-04-25] MEDS: POTASSIUM CHLORIDE 10 MEQ SR TABLET PO SCH (09:07)
--- NOTE | 2020-04-25 13:00 | DS.PDOC ---
Discharge Summary General Date of Admission Apr 23, 2020 at 23:09 Date of Discharge 04/25/20 Discharge Summary PROCEDURES PERFORMED DURING STAY: [None]. ADMITTING DIAGNOSES: Generalized weakness/fatigue Question of portal vein thrombosis on CT abdomen Atrial fibrillation Hypertension Type 2 diabetes Endometrial hyperplasia Morbid Obesity GERD DISCHARGE DIAGNOSES: Generalized weakness/fatigue Atrial fibrillation Hypertension Type 2 diabetes Endometrial hyperplasia Morbid Obesity GERD COMPLICATIONS/CHIEF COMPLAINT: Portal Vein Thrombosis. HISTORY OF PRESENT ILLNESS: 70 year old female with PMHx detailed below presented to the ED today after a few days of worsening symptoms. She states she has been feeling fatigue and generalized weakness. She also has intermittent shortness of breath with chest tightness which occur together. She states that these symptoms have been bothering her off and on over the past year. However, she notes worsening symptoms over the past few days. She was concerned today at work when a coworker said she looked unwell and the patient decided to present to the ED for evaluation. HOSPITAL COURSE: During the hospital stay the following issues addressed Generalized weakness/fatigue PT/OT Question of portal vein thrombosis on CT abdomen CT showed Defect in the portal and superior mesenteric vein which is suspicious for thrombus/artifact. Doppler ultrasound showed Hepatosplenomegaly. Normal Doppler interrogation to the portal vascular system. Hepatic veins suggest underlying cardiac dysfunction and tricuspid regurgitation Dr Hughes reviewed these findings, she thinks no portal vein thrombosis present. Atrial fibrillation Rate controlled Continue oral target anticoagulation Continue metoprolol Hypertension Blood pressures under control Continue home cardioprotective medication Type 2 diabetes Diabetes diet Insulin sliding scale Detemir Endometrial hyperplasia Continue home meds GERD - continue home PPI KARISHMA - continue CPAP at night, home setting of 16 cmH2O Morbid Obesity - BMI 53, complicates care DISCHARGE MEDICATIONS: Please see below. ALLERGIES: Please see below. PHYSICAL EXAMINATION ON DISCHARGE: VITAL SIGNS: Please see below. GENERAL APPEARANCE: Morbidly obese female HEENT: no scleral icterus, no JVD, EOMI CARDIOVASCULAR: Irregularly irregular LUNGS: Diminished lung sounds bilaterally ABDOMEN: soft & not tender w palpitation, obese MUSCULOSKELETAL: no cyanosis, no swelling INTEGUMENT: no generalized pallor NEUROLOGICAL: cranial nerve function from 2-12 intact intact, follows commands, speech not dysarthric LABORATORY DATA: Please see below. IMAGING: [facility] NAME: LALA GUERRERO DATE OF : 1950 AGE: 70 SEX: F REPORT #: [id number] ROOM: [facility] TECHNOLOGIST: DAVID DOCTOR: SHANI IBARRA MD Ordered for Date&Time: 04/24/20 0700 cc: [~ rep ct ivnm] Service Date&Time: 04/24/20 0950 This report is in Signed status. If this report is in a DRAFT status it has not yet been reviewed by the ra diologist for accuracy. Thank you for having your radiology procedures performed at [facility] RADIOLOGY REPORT Date&Time printed: [~ rep prt dt last] [~ rep prt tm last] Page 2 of 2 [place] [id number] RADIOLOGY REPORT This report is in Signed status. If this report is in a DRAFT status it has not yet been reviewed by the radiologist for accuracy. Thank you for having your radiology procedures performed at [facility] RADIOLOGY REPORT Date&Time printed: [~ rep prt dt last] [~ rep prt tm last] Page 1 of 2 INDICATION: with liver doppler for portal vein thrombosis- npo overnight COMPARISON: None TECHNIQUE: Real time B-mode pierce scale and color Doppler ultrasound examination using curved array transducer. FINDINGS: Hepatosplenomegaly noted without focal hepatic or splenic lesion identified. Liver measures 19.7 cm in craniocaudal length. Splenic index equals 538. Evidence for prior cholecystectomy. No biliary dilatation is appreciated and the common bile duct measures 4 mm diameter. Pancreas is grossly normal. Bilateral kidneys demonstrate cortical thinning and increased central sinus fat consistent with chronic change. No hydronephrosis. Right kidney measures 11.1 x 4.5 x 5.2 cm. Left kidney measures 11.6 x 5.1 x 4.7 cm. No ascites. Doppler interrogation demonstrates normal waveforms, flow direction and velocities to the portal and splenic veins hepatic artery demonstrates normal arterial wave pattern and velocity. Hepatic venous waveforms suggest underlying cardiac dysfunction and suspected tricuspid regurgitation. Main portal vein: 20.7 cm/sec Intrahepatic portal veins: 15.0-16.6 cm/sec Hepatic artery: 85.9 cm/sec (RI 0.71) Splenic vein: 30.1 cm/sec. IMPRESSION: 1. Hepatosplenomegaly. 2. Normal Doppler interrogation to the portal vascular system. 3. Hepatic veins suggest underlying cardiac dysfunction and tricuspid regurgitation. <Electronically signed by Williams Gonsales > 04/24/20 1011 DD: Williams Gonsales MD 04/24/20 1006 DT: TRACY 04/24/20 1011 DS: GRISELDA 04/24/20 1006 04/24/20 1006 [~ rep ct labl] PROGNOSIS: Fair ACTIVITY: [As tolerated]. DIET: Cardiac/diabetes DISPOSITION: Home ITEMS TO FOLLOWUP ON ON OUTPATIENT: With PCP DISCHARGE CONDITION: [Stable]. TIME SPENT ON DISCHARGE: 30minutes. Vital Signs/I&Os Vital Signs Date Time Temp Pulse Resp B/P (MAP) Pulse Ox O2 Delivery O2 Flow Rate FiO2 04/25/20 09:07 99 157/80 04/25/20 06:00 97.6 17 96 Room Air 04/24/20 14:00 2.0 l I&O- Last 24 Hours up to 6 AM 04/25/20 06:00 Intake Total 1620 ml Output Total 2550 ml Balance -930 ml Laboratory Data Labs 24H Laboratory Tests 2 04/24/20 16:47: Bedside Glucose (Misc Panel) 150H 04/24/20 20:13: Bedside Glucose (Misc Panel) 289H 04/25/20 06:23: Bedside Glucose (Misc Panel) 122H 04/25/20 07:46: Immature Granulocyte % (Auto) 0.4, Neutrophils (%) (Auto) 66.7H, Lymphocytes (%) (Auto) 23.8L, Monocytes (%) (Auto) 6.8, Eosinophils (%) (Auto) 1.9, Basophils (%) (Auto) 0.4, Neutrophils # (Auto) 7.7, Lymphocytes # (Auto) 2.7, Monocytes # (Auto) 0.8, Eosinophils # (Auto) 0.2, Basophils # (Auto) 0.1, Nucleated Red Blood Cells % (auto) 0.0, Anion Gap 7L, Glomerular Filtration Rate 43.0L, Calcium Level 8.4L, Magnesium Level 2.1, Total Bilirubin 0.4, Aspartate Amino Transf (AST/SGOT) 10, Alanine Aminotransferase (ALT/SGPT) 14, Alkaline Phosphatase 118H, Total Protein 6.2L, Albumin 2.8L, Albumin/Globulin Ratio 0.8L 04/25/20 11:39: Bedside Glucose (Misc Panel) 200H CBC/BMP Laboratory Tests 04/25/20 07:46 FSBS Laboratory Tests Test 04/24/20 16:47 04/24/20 20:13 04/25/20 06:23 04/25/20 11:39 Range/Units Bedside Glucose (Misc Panel) 150 289 122 200 80-115 MG/DL Microbiology Microbiology 04/23/20 Urine Culture - Final, Complete Discharge Medications Scheduled Anastrozole (Anastrozole) 1 Mg Tab, 1 MG PO DAILY, (Reported) Apixaban (Eliquis) 5 Mg Tablet, 5 MG PO BID, (Reported) Atorvastatin Calcium (Lipitor) 20 Mg Tab, 20 MG PO QHS, (Reported) Calcitriol (Calcitriol) 0.25 Mcg Capsule, 0.25 MCG PO BID, (Reported) Calcium Citrate/Vitamin D3 (Calcium Cit-Vit D 250-200 Tab) 1 Each Tablet, 1 TAB PO BID, (Reported) Cholecalciferol (Vitamin D3) (Vitamin D3) 1,000 Unit Tablet, 2,000 UNITS PO BID, (Reported) Cyanocobalamin (Vitamin B-12) (Vitamin B-12) 500 Mcg Tablet, 500 MCG PO DAILY, (Reported) Dulaglutide (Trulicity) 1.5 Mg/0.5 Ml Pen.injctr, 1.5 MG SC QWEEK, (Reported) SATURDAYS Fluticasone Propionate (Flonase Allergy Relief) 50 Mcg/Act Spr, 1 SPRAY NARES QHS, (Reported) Furosemide (Furosemide) 20 Mg Tablet, 20 MG PO DAILY, (Reported) Insulin Detemir (Levemir) 100 Unit/1 Ml Vial, 22 UNITS SC QHS, (Reported) Lisinopril (Lisinopril) 20 Mg Tablet, 20 MG PO QHS, (Reported) Megestrol Acetate (Megestrol Acetate) 40 Mg Tablet, 40 MG PO QHS, (Reported) Metoprolol Succinate (Metoprolol Succinate) 100 Mg Tab.er.24h, 100 MG PO QHS, (Reported) Metoprolol Succinate (Metoprolol Succinate) 100 Mg Tab.er.24h, 50 MG PO DAILY, (Reported) Multivitamins (Thera M Plus Tablet) 1 Each Tablet, 1 TAB PO DAILY, (Reported) Pantoprazole Sodium (Pantoprazole Sodium) 40 Mg Tab, 40 MG PO BID, (Reported) Potassium Chloride (K-Tab ER) 10 Meq Tablet.er, 10 MEQ PO BID, (Reported) Spironolactone (Spironolactone) 25 Mg Tablet, 25 MG PO BID, (Reported) Allergies Coded Allergies: Penicillins (Unverified Allergy, Unknown, RASH, 04/23/20) NSAIDS (Non-Steroidal Anti-Inflamma (Verified Adverse Reaction, Unknown, NOT ABLE TO TAKE, HAD BARIATRIC SURGERY, 10/11/19) clindamycin (Verified Adverse Reaction, Unknown, GI UPSET, 10/11/19) oxycodone (Verified Adverse Reaction, Unknown, NOT ABLE TO TOLERATE, STOMACH UPSET, 10/11/19) RUDDY DOWNS DO Apr 25, 2020 13:00
== END 2020-04-25 14:05 | disposition home or self-care (01) | DRG 861 ==
LOC: M ED 14:19 → M ED INP 23:09 → ENRESERV 23:35 → M MSPAV 04-24 00:20
PROVIDERS: ADMIT Family Medicine; ATTEND Internal Medicine
DX: R53.1 Weakness (principal); Z68.43 Body mass index [BMI] 50.0-59.9, adult; I48.91 Unspecified atrial fibrillation; E66.01 Morbid (severe) obesity due to excess calories; I36.0 Nonrheumatic tricuspid (valve) stenosis; E11.9 Type 2 diabetes mellitus without complications; I10 Essential (primary) hypertension; K21.9 Gastro-esophageal reflux disease without esophagitis; N85.00 Endometrial hyperplasia, unspecified; G47.33 Obstructive sleep apnea (adult) (pediatric); Z79.01 Long term (current) use of anticoagulants; Z79.899 Other long term (current) drug therapy; Z88.0 Allergy status to penicillin; Z88.5 Allergy status to narcotic agent; Z88.6 Allergy status to analgesic agent; Z88.8 Allergy status to other drugs, medicaments and biological substances; Z90.49 Acquired absence of other specified parts of digestive tract; R53.83 Other fatigue

== ENCOUNTER → 2020-05-23 | Outpatient (CLI) | payer BC, OTHER ==
[~2020-05-23] MED LIST changes: +CALC-176 PO; +D31000TA2 PO; +ELIQ5TAB PO; +METO1TAB33 PO; +VITMTA PO
--- NOTE | 2020-05-26 16:44 | SLEEPCENT ---
NOCTURNAL POLYSOMNOGRAPHY DATE: 05/23/2020 ORDERED BY: Bing Ludwig NP Nocturnal polysomnography was performed for reevaluation of sleep physiology in this patient with a prior history of obstructive sleep apnea syndrome. 8 hours and 13 minutes of data were reviewed. There were 236.5 minutes of sleep identified. Sleep latency was mildly prolonged at 34.5 minutes. REM latency was not achieved. Sleep architecture was poor with fragmentation throughout the night with periods of wake. Overall sleep efficiency was 48.9%. The electrocardiogram showed atrial fibrillation with controlled ventricular response rate of 84; rate range 62 to 116. EEG showed reasonably normal waveforms and coarsening and multiple nonspecific arousals. There were 30 respiratory events identified of 10 seconds in duration or greater for an apnea-hypopnea index of 7.6. The events were obstructive, not exclusive to sleep stage nor posture. Arousals from respiratory events occurred 36.8 times per hour when arousals from snoring were included. There was some minor activity noted in the EMG leads with no trains of events. Limb movement arousal index 5.6. IMPRESSION: Obstructive sleep apnea syndrome (G47.33), apnea-hypopnea index 7.6. RECOMMENDATION: The patient should be encouraged to return to [facility] for [facility] therapy. In the interim, alcohol and sedative avoidance should be practiced and caution exercised during the operation of motor vehicles.
== END ==
LOC: M SLEEP 20:00
PROVIDERS: ATTEND Nurse Practitioner Adult Health
DX: G47.33 Obstructive sleep apnea (adult) (pediatric) (principal)

== ENCOUNTER → 2020-10-28 | Outpatient (CLI) | payer BC, OTHER ==
--- NOTE | 2020-10-29 04:45 | REP ---
INDICATION: SOB COMPARISON: 04/23/2020 TECHNIQUE: PA and lateral. FINDINGS: The mediastinum and cardiac silhouette are normal. The lung broussard are clear and without acute consolidation, effusion, or pneumothorax. The skeletal structures are intact and normal. IMPRESSION: No acute cardiopulmonary process. <Electronically signed by Williams Gonsales > 10/29/20 [id number]
== END ==
LOC: M WUC 11:55
PROVIDERS: ATTEND Internal Medicine
DX: R06.02 Shortness of breath (principal)

== ENCOUNTER → 2020-12-18 | Outpatient (CLI) | payer BC, OTHER ==
[~2020-12-18] MED LIST changes: +APAP325T4 PO; +LORA-243 PO; +META0.52 PO
== END ==
LOC: M LABSMTC 09:43
PROVIDERS: ATTEND Anesthesiology
DX: Z01.812 Encounter for preprocedural laboratory examination (principal); Z20.822 Contact with and (suspected) exposure to COVID-19

== ENCOUNTER 2020-12-23 12:06 | Day surgery (SDC) | payer BC, OTHER ==
[~2020-12-23] VITALS: Ht 160 cm; Wt 118.3 kg
[~2020-12-23 12:06] MED LIST changes: +NS 1,000 ML IV ONE
[2020-12-23] MEDS ORDERED: propofoL 200 MG/20 ML VIAL As Ordered ONE ×2 (13:24→14:04)
--- NOTE | 2020-12-23 14:37 | ROOR ---
Patient Name: Noemi Jacobs Procedure Date: 12/23/2020 1:32 PM Date of : 1950 Age: 70 Room: [facility] Gender: Female Note Status: Finalized Procedure: Colonoscopy Indications: High risk colon cancer surveillance: Personal history of colonic polyps, High risk colon cancer surveillance: Personal history of adenoma with high grade dysplasia Providers: Delio Ott MD Referring MD: Lisa ARORA MD Requesting Provider: Medicines: Monitored Anesthesia Care Complications: No immediate complications. Procedure: Pre-Anesthesia Assessment: - The heart rate, respiratory rate, oxygen saturations, blood pressure, adequacy of pulmonary ventilation, and response to care were monitored throughout the procedure. The Colonoscope was introduced through the anus and advanced to the terminal ileum, with identification of the appendiceal orifice and IC valve. The colonoscopy was somewhat difficult due to the patient's body habitus. Successful completion of the procedure was aided by applying abdominal pressure. The patient tolerated the procedure well. The quality of the bowel preparation was adequate. Findings: The perianal and digital rectal examinations were normal. Three semi-sessile polyps were found in the descending colon and splenic flexure. The polyps were diminutive in size. These polyps were removed with a hot snare. Resection and retrieval were complete. Multiple small and large-mouthed diverticula were found in the sigmoid colon. Internal hemorrhoids were found during retroflexion. The hemorrhoids were moderate. Impression: - Three diminutive polyps in the descending colon and at the splenic flexure, removed with a hot snare. Resected and retrieved. - Diverticulosis in the sigmoid colon. - Internal hemorrhoids. Recommendation: - Repeat colonoscopy in 3 years for surveillance. - Resume Eliquis (apixaban) at prior dose on 12/25/2020. Refer to referring physician for further adjustment of therapy. Procedure Code(s): --- Professional --- 32227, Colonoscopy, flexible; with removal of tumor(s), polyp(s), or other lesion(s) by snare technique Diagnosis Code(s): --- Professional --- K57.30, Diverticulosis of large intestine without perforation or abscess without bleeding Z86.010, Personal history of colonic polyps K64.8, Other hemorrhoids K63.5, Polyp of colon CPT copyright 2019 [employer]. All rights reserved. The codes documented in this report are preliminary and upon asset protection professional review may be revised to meet current compliance requirements. Delio Ott MD Delio Ott MD 12/23/2020 2:37:22 PM Electronically signed by Delio Ott MD Number of Addenda: 0 Note Initiated On: 12/23/2020 1:32 PM Estimated Blood Loss: Estimated blood loss: none.
[2020-12-23 14:51] VITALS: BP 132/58
== END 2020-12-23 15:15 | disposition home or self-care (01) ==
LOC: M OPP 12:06
PROVIDERS: ATTEND Internal Medicine Gastroenterology
DX: K57.30 Diverticulosis of large intestine without perforation or abscess without bleeding (principal); K64.8 Other hemorrhoids; D12.4 Benign neoplasm of descending colon; Z86.010 Personal history of colon polyps

== ENCOUNTER → 2021-02-02 | Outpatient (REF) | payer BC, OTHER ==
[~2021-02-02] MED LIST changes: -NS 1,000 ML IV ONE
== END ==
LOC: M LAB REF 11:54
PROVIDERS: ATTEND Internal Medicine
DX: D72.829 Elevated white blood cell count, unspecified (principal)

== ENCOUNTER → 2021-02-12 | Outpatient (REF) | payer BC, OTHER | LOC: M LAB REF 10:59 | PROVIDERS: ATTEND Internal Medicine | DX: M25.50 Pain in unspecified joint (principal) ==

== ENCOUNTER → 2021-03-16 | Outpatient (REF) | payer OTHER | LOC: M LAB REF 16:17 | PROVIDERS: ATTEND Internal Medicine | DX: M25.50 Pain in unspecified joint (principal) ==

== ENCOUNTER → 2021-05-04 | Outpatient (REF) | payer MEDICARE, BC, OTHER ==
[~2021-05-04] MED LIST changes: -D31000TA2 PO; +VITA100093 PO
[2021-05-06 11:19] LABS: PERCENT SATURATION 9.8 % (13.2-45.0)
== END ==
LOC: M LAB REF 10:05
PROVIDERS: ATTEND Internal Medicine
DX: N18.32 Chronic kidney disease, stage 3b (principal); Z79.899 Other long term (current) drug therapy

== ENCOUNTER → 2021-05-06 | Outpatient (CLI) | payer MEDICARE, BC, OTHER | LOC: M WHC 08:10 | PROVIDERS: ATTEND Obstetrics & Gynecology | DX: Z12.31 Encounter for screening mammogram for malignant neoplasm of breast (principal) ==